=== PATIENT | male | born 1960 | race Caucasian/White ===

== ENCOUNTER 2023-02-03 07:23 | Inpatient (IN) ==
[2023-02-03] MEDS ORDERED: SODIUM CHLORIDE 0.9% 1000ML 1,000 ML IV STA (07:46)
[2023-02-03] MEDS ORDERED: ONDANSETRON INJ 2 MG/ML 2 ML VIAL IV STA (07:46)
[2023-02-03] MEDS ORDERED: KETOROLAC TROMETHAMINE 15 MG/ML VIAL IV STA (07:46)
--- NOTE | 2023-02-03 07:53 | Emergency Department Note ---
Impression & Plan Non-ST elevation [place] (NSTEMI), Right distal ureteral calculus, Elevated liver enzymes ED Provider Note CHIEF COMPLAINT: Right lower abdominal and flank pain HISTORY OF PRESENTING ILLNESS: This is a 62-year-old male who presents to the emergency department by private vehicle with complaint of right lower quadrant abdominal and right flank pain that started yesterday afternoon. The patient s tates that the pain has been intermittent, but was fairly severe throughout the night and kept him awake most of the night that he was unable to sleep. Currently rates the pain 6/10 and describes as sharp aching pain, radiates from his flank to his right lower abdomen and into his groin. He has not tried any [id number] medications for his symptoms. He does note an episode of vomiting last night and has had persistent nausea. He also had 1 episode of loose stools yesterday, but denies diarrhea or constipation. He denies bloody or black stools or blood in the emesis. He does note some increased urinary symptoms of hesitancy and frequency, he notes a history of enlarged prostate and has not been taking his Flomax for the past few weeks. He denies any history of abdominal surgeries or problems. He does report a history of fatty liver. He denies any history of kidney stones. He does note that he recently had a heart attack about 3 weeks ago, noting he was admitted for about 24 hours and he did not have any interventions done. He was started on a blood pressure medication and aspirin, but is not on any other blood thinners. He denies any chest pain, chest tightness, shortness of breath, palpitations, dizziness or syncope. REVIEW OF SYSTEMS: A complete 10 point review of systems was reviewed with the patient with pertinent positives and negatives as per history of present illness. All else were negative. PAST MEDICAL HISTORY: CAD, hypertension, enlarged prostate SOCIAL HISTORY: Home, he denies tobacco use ALLERGIES: No known allergies PHYSICAL EXAM: CONSTITUTIONAL: Pleasant and cooperative. Nontoxic-appearing and in no acute distress. Well appearing and well nourished. HEENT: Normocephalic, atraumatic. NECK: Supple, full active range of motion without discomfort. RESPIRATORY: Clear to auscultation bilaterally with no wheezing, crackles, rhonchi or stridor. Equal expansion bilaterally. CARDIOVASCULAR: Regular rate and rhythm with no murmurs, rubs or gallops. Normal peripheral perfusion. No edema. GASTROINTESTINAL: Tender to palpation in the right mid and right lower quadrant, no rebound tenderness or guarding. No RUQ tenderness. Abdomen is otherwise nontender, soft and nondistended. No palpable masses or HSM. Bowel sounds present in all quadrants. No CVA tenderness bilaterally. MUSCULOSKELETAL: Full range of motion of all joints without discomfort. INTEGUMENTARY: No rash or other significant dermatologic conditions noted. NEUROLOGIC: Alert and oriented X 4 with normal affect. Normal speech. Normal gait observed. ED COURSE AND MEDICAL DECISION MAKING: CC: Patient presenting with complaint of right lower abdominal and flank pain DIFFERENTIAL DIAGNOSIS: Includes, but not limited to ureteral stone, UTI, pyelonephritis, appendicitis, diverticulitis, cholecystitis, cholelithiasis, pancreatitis, gastroenteritis, viral process, acute coronary syndrome, pulmonary embolism, among others. INTERPRETATION OF LABS: No leukocytosis, no anemia, normal platelets, no significant electrolyte abnormalities, normal renal function, mildly elevated T. bili and ALT with normal AST and normal lipase. Coagulation factors within normal limits. Troponin significantly elevated. UA shows large blood with no signs of an infection. EK: Indication was abdominal pain and nausea/vomiting. Shows sinus rhythm with a rate of 81 bpm intervals, no ST elevation or depression, occasional PACs by my interpretation. No previous EKGs available for comparison. 0933: Indication was chest pain. Shows normal sinus rhythm with a rate of 81 bpm, sinus arrhythmia, normal intervals, no ST elevation or depression, no ectopy, PACs no longer present when compared to previous EKG from today by my interpretation. MEDICATION RECONCILIATION: I attest that I have personally reviewed the patient's current medication list. INITIAL VITAL SIGNS REVIEW: I reviewed the patient's initial vital signs and interpret them as follows: T: Afebrile; BP: Normotensive; HR: Within normal limits; RR: Within normal limit; Pulse Ox: Within normal limits on room air. MDM SUMMARY: Patient was evaluated at bedside, history and physical exam performed. Patient is alert and oriented, in no acute distress, resting calmly in the stretcher. He is afebrile and nontoxic-appearing. Tender to palpation of the right mid and lower abdomen, no acute abdomen. Cardiac monitoring: An order was placed for continuous cardiac monitoring. The monitor shows a rate of 75 bpm with normal sinus rhythm. Orders were placed for labs, UA, IV fluid bolus for hydration, IV Toradol for pain, IV Zofran for nausea, EKG, and CT abdomen/pelvis with IV contrast to evaluate for abdominal pain. EKG reviewed at bedside, no acute ischemic changes appreciated. Outside records from the patient's recent admission were requested. Patient discussed with Dr. Rg, who agrees with my assessment, plan, and disposition. Labs and imaging reviewed, labs are notable for an elevated troponin, as well as elevated liver enzymes. The patient was reassessed and I discussed his results with him. The patient does now admit that he is having some pressure in the left side of his chest that started after he had his CT imaging today. He also admits that he has been having some chest pressure off-and-on for the past few weeks since his heart attack, especially with exertion. He denies any shortness of breath, dizziness or palpitations and is well-appearing. Orders placed for repeat EKG given the new complaint of chest pressure as well as a repeat troponin. Chest x-ray also ordered. EKG reviewed and I did not note any new changes from previous EKG. Additional order placed for CTA of the chest per Dr. Rg's recommendation to evaluate for possible PE, this was reviewed and was negative. Repeat troponin is noted to be increasing, concerning for an acute cardiac process. On reassessment, the patient does state his chest discomfort has resolved. I was unable to obtain outside records, but from speaking with the patient it seems that he did not undergo any heart catheterization during his recent admission. I do believe cardiac cath should be considered, given his evolving cardiac process. I discussed all results with the patient at length and did recommend strongly that he be admitted to the hospital for further evaluation for his elevated troponin and chest discomfort, he did agree to this. [facility] to evaluate the patient for [facility]. Patient reassessed multiple times throughout ED stay, he has remained hemodynamically stable and denies any further chest discomfort at this time. The patient was updated on the plan for admission and he verbalized understanding and agreement. The patient was stable at the time of admission. The chart was completed utilizing Reissued voice recognition software. Grammatical errors, random word insertions, pronoun errors, and incomplete sentences are an occasional consequence of this system due to software limitations, ambient noise, and hardware issues. Any formal questions or concerns about the content, text, or information contained within the body of this dictation should be directly addressed to the nurse practitioner for clarification. Past Med/Surg History Social History Smoking Status: Never smoker Preferred Language: Icelandic Feels Safe at Home: Yes Allergies Allergies Allergy/AdvReac Type Severity Reaction Status Date / Time No Known Allergies Allergy Unverified 02/03/23 07:45 Results & Data (ED) Vital Signs Vital Signs - 24 hr 02/03/23 07:28 02/03/23 07:39 02/03/23 08:01 Temperature 36.3 C L Temperature Source Temporal Artery Scan Pulse Rate 85 Pulse Rate [Apical] 88 Pulse Rate from SpO2 Sensor Pulse Rhythm [Apical] Regular Pulse Strength [Apical] Normal Respiratory Rate 20 18 Respiratory Effort / Characteristics Non-Labored Respiratory Depth Normal Normal Respiratory Pattern Blood Pressure 152/67 H Blood Pressure [Right Arm] 130/88 Blood Pressure Mean 95 Blood Pressure Mean [Right Arm] 102 Blood Pressure Position Sitting Pulse Oximetry 98 98 96 Oxygen Delivery Method Room Air Room Air Room Air Sepsis Recent Fever Within 48 Hours No Sepsis New/Unexplained Change in Mental Status No Sepsis Action Taken by Nursing No Action Required 02/03/23 07:51 02/03/23 07:40 02/03/23 07:50 Temperature Temperature Source Pulse Rate 89 88 87 Pulse Rate [Apical] Pulse Rate from SpO2 Sensor 88 85 Pulse Rhythm [Apical] Pulse Strength [Apical] Respiratory Rate 19 17 Respiratory Effort / Characteristics Respiratory Depth Respiratory Pattern Blood Pressure Blood Pressure [Right Arm] Blood Pressure Mean Blood Pressure Mean [Right Arm] Blood Pressure Position Pulse Oximetry 97 95 Oxygen Delivery Method Sepsis Recent Fever Within 48 Hours Sepsis New/Unexplained Change in Mental Status Sepsis Action Taken by Nursing 02/03/23 08:00 02/03/23 08:10 02/03/23 08:20 Temperature Temperature Source Pulse Rate 68 75 75 Pulse Rate [Apical] Pulse Rate from SpO2 Sensor 70 75 81 Pulse Rhythm [Apical] Pulse Strength [Apical] Respiratory Rate 16 23 16 Respiratory Effort / Characteristics Respiratory Depth Respiratory Pattern Blood Pressure Blood Pressure [Right Arm] Blood Pressure Mean Blood Pressure Mean [Right Arm] Blood Pressure Position Pulse Oximetry 97 96 95 Oxygen Delivery Method Sepsis Recent Fever Within 48 Hours Sepsis New/Unexplained Change in Mental Status Sepsis Action Taken by Nursing 02/03/23 08:30 02/03/23 08:56 02/03/23 08:56 Temperature Temperature Source Pulse Rate 75 72 Pulse Rate [Apical] Pulse Rate from SpO2 Sensor 76 Pulse Rhythm [Apical] Pulse Strength [Apical] Respiratory Rate 13 25 H Respiratory Effort / Characteristics Respiratory Depth Respiratory Pattern Blood Pressure 147/73 H Blood Pressure [Right Arm] Blood Pressure Mean 97 Blood Pressure Mean [Right Arm] Blood Pressure Position Pulse Oximetry 97 98 Oxygen Delivery Method Sepsis Recent Fever Within 48 Hours Sepsis New/Unexplained Change in Mental Status Sepsis Action Taken by Nursing 02/03/23 09:00 02/03/23 09:10 02/03/23 09:20 Temperature Temperature Source Pulse Rate 69 82 83 Pulse Rate [Apical] Pulse Rate from SpO2 Sensor 70 81 86 Pulse Rhythm [Apical] Pulse Strength [Apical] Respiratory Rate 14 15 21 Respiratory Effort / Characteristics Respiratory Depth Respiratory Pattern Blood Pressure Blood Pressure [Right Arm] Blood Pressure Mean Blood Pressure Mean [Right Arm] Blood Pressure Position Pulse Oximetry 97 99 99 Oxygen Delivery Method Sepsis Recent Fever Within 48 Hours Sepsis New/Unexplained Change in Mental Status Sepsis Action Taken by Nursing 02/03/23 09:30 02/03/23 09:44 02/03/23 09:49 Temperature Temperature Source Pulse Rate 84 Pulse Rate [Apical] 72 Pulse Rate from SpO2 Sensor 88 72 Pulse Rhythm [Apical] Pulse Strength [Apical] Respiratory Rate 13 18 Respiratory Effort / Characteristics Non-Labored Respiratory Depth Normal Respiratory Pattern Regular Blood Pressure Blood Pressure [Right Arm] 129/73 Blood Pressure Mean Blood Pressure Mean [Right Arm] 91 Blood Pressure Position Pulse Oximetry 98 99 99 Oxygen Delivery Method Room Air Sepsis Recent Fever Within 48 Hours Sepsis New/Unexplained Change in Mental Status Sepsis Action Taken by Nursing 02/03/23 11:05 02/03/23 11:56 Temperature Temperature Source Pulse Rate 69 Pulse Rate [Apical] 58 L Pulse Rate from SpO2 Sensor Pulse Rhythm [Apical] Pulse Strength [Apical] Respiratory Rate 18 Respiratory Effort / Characteristics Non-Labored Respiratory Depth Normal Respiratory Pattern Regular Blood Pressure Blood Pressure [Right Arm] 119/68 Blood Pressure Mean Blood Pressure Mean [Right Arm] 85 Blood Pressure Position Pulse Oximetry 98 Oxygen Delivery Method Room Air Sepsis Recent Fever Within 48 Hours Sepsis New/Unexplained Change in Mental Status Sepsis Action Taken by Nursing Laboratory Data 02/03/23 07:47 02/03/23 07:47 Lab Results 02/03/23 02/03/23 02/03/23 Range/Units 07:47 07:47 07:47 WBC 8.68 (4.8-10.8) K/ul RBC 4.91 (4.70-6.10) M/uL Hgb 15.1 (14.0-18.0) g/dl Hct 42.8 (42.0-52.0) % MCV 87.2 (80.0-100.0) fL MCH 30.8 (25.0-34.0) pg MCHC 35.3 (32.0-36.0) g/dL RDW Std Deviation 38.2 (36.4-46.3) fL RDW Coeff of [place] 11.9 (11.5-14.5) % Plt Count 237 (130-400) K/uL MPV 10.7 (9.4-12.4) fL Immature Gran % (Auto) 0.3 % Neut % (Auto) 72.0 % Lymph % (Auto) 20.6 % [place] % (Auto) 6.7 % Eos % (Auto) 0.1 % Baso % (Auto) 0.3 % Neut # (Auto) 6.24 (1.40-6.50) K/uL Lymph # (Auto) 1.79 (1.2-3.4) K/uL [place] # (Auto) 0.58 (0.11-0.59) K/uL Eos # (Auto) 0.01 (0-0.50) K/uL Baso # (Auto) 0.03 (0-0.2) K/uL Immature Gran # (Auto) 0.03 (0.01-0.20) K/uL PT 11.5 (9.0-12.0) Seconds INR 1.1 (0.9-1.1) Sodium 140 (136-145) mmol/L Potassium 3.8 (3.5-5.1) mmol/L Chloride 106 (98-107) mmol/L Carbon Dioxide 26 (21-32) mmol/L Anion Gap 8 (3-11) BUN 17 (6-23) mg/dl Creatinine 0.84 (0.6-1.4) mg/dl Est Cr Clr Drug Dosing 92.9 ml/min Est GFR ( Amer) 108.0 ml/min Est GFR (Non-Af Amer) 93.2 ml/min BUN/Creatinine Ratio 20.2 H (10-20) Glucose 161 H (70-99(Fasting)) mg/dl Calcium 9.6 (8.6-10.3) mg/dl Total Bilirubin 1.6 H (0.2-1.0) mg/dl AST 38 (13-39) U/L ALT 91 H (7-52) U/L Alkaline Phosphatase 107 H (34-104) U/L Troponin I High Sens 353.1 H* (0-20) pg/ml Total Protein 7.1 (6.0-8.3) gm/dl Albumin 4.5 (3.4-5.0) gm/dl Globulin 2.6 (2.5-4.0) gm/dl Albumin/Globulin Ratio 1.7 (0.9-2) Lipase 12 (11-82) U/L Urine Color Urine Appearance (Clear) Urine pH (4.5-7.5) Ur Specific [place] (1.000-1.030) Urine Protein (Negative) Urine Glucose (UA) (Negative) Urine Ketones (Negative) Urine Blood (Negative) Urine Nitrite (Negative) Urine Bilirubin (Negative) Urine Urobilinogen (Negative) Ur Leukocyte Esterase (Negative) Urine WBC (Auto) (0-5) /hpf Urine RBC (Auto) (0-4) /hpf U Hyaline Cast (Auto) (0-5) /lpf U Epithel Cells (Auto) (0-5) /lpf Urine Bacteria (Auto) (Negative) SARS-CoV-2, RNA, NAAT (NEGATIVE) 02/03/23 02/03/23 02/03/23 Range/Units 08:57 12:37 13:16 WBC (4.8-10.8) K/ul RBC (4.70-6.10) M/uL Hgb (14.0-18.0) g/dl Hct (42.0-52.0) % MCV (80.0-100.0) fL MCH (25.0-34.0) pg MCHC (32.0-36.0) g/dL RDW Std Deviation (36.4-46.3) fL RDW Coeff of [place] (11.5-14.5) % Plt Count (130-400) K/uL MPV (9.4-12.4) fL Immature Gran % (Auto) % Neut % (Auto) % Lymph % (Auto) % [place] % (Auto) % Eos % (Auto) % Baso % (Auto) % Neut # (Auto) (1.40-6.50) K/uL Lymph # (Auto) (1.2-3.4) K/uL [place] # (Auto) (0.11-0.59) K/uL Eos # (Auto) (0-0.50) K/uL Baso # (Auto) (0-0.2) K/uL Immature Gran # (Auto) (0.01-0.20) K/uL PT (9.0-12.0) Seconds INR (0.9-1.1) Sodium (136-145) mmol/L Potassium (3.5-5.1) mmol/L Chloride (98-107) mmol/L Carbon Dioxide (21-32) mmol/L Anion Gap (3-11) BUN (6-23) mg/dl Creatinine (0.6-1.4) mg/dl Est Cr Clr Drug Dosing ml/min Est GFR ( Amer) ml/min Est GFR (Non-Af Amer) ml/min BUN/Creatinine Ratio (10-20) Glucose (70-99(Fasting)) mg/dl Calcium (8.6-10.3) mg/dl Total Bilirubin (0.2-1.0) mg/dl AST (13-39) U/L ALT (7-52) U/L Alkaline Phosphatase (34-104) U/L Troponin I High Sens 462.1 H* D (0-20) pg/ml Total Protein (6.0-8.3) gm/dl Albumin (3.4-5.0) gm/dl Globulin (2.5-4.0) gm/dl Albumin/Globulin Ratio (0.9-2) Lipase (11-82) U/L Urine Color Yellow Urine Appearance Cloudy A (Clear) Urine pH 5.5 (4.5-7.5) Ur Specific [place] 1.022 (1.000-1.030) Urine Protein Negative (Negative) Urine Glucose (UA) Negative (Negative) Urine Ketones 1+ H (Negative) Urine Blood 3+ H (Negative) Urine Nitrite Negative (Negative) Urine Bilirubin Negative (Negative) Urine Urobilinogen Negative (Negative) Ur Leukocyte Esterase Trace H (Negative) Urine WBC (Auto) 1-5 (0-5) /hpf Urine RBC (Auto) >30 H (0-4) /hpf U Hyaline Cast (Auto) 1-5 (0-5) /lpf U Epithel Cells (Auto) 0-5 (0-5) /lpf Urine Bacteria (Auto) Negative (Negative) SARS-CoV-2, RNA, NAAT NEGATIVE (NEGATIVE) Administered Medications Discontinued Medications Sodium Chloride (Nss 1000ml) 1,000 mls @ 999 mls/hr IV .Q1H1M STA Stop: 02/03/23 08:46 Last Infusion: 02/03/23 08:54 Dose: 0 mls/hr Documented By: Admin: 02/03/23 07:50 Dose: 999 mls/hr Documented By: JACINTA Ioversol (Optiray 320 500ml) 94 ml IV ONCE ONE Stop: 02/03/23 08:45 Last Admin: 02/03/23 08:44 Dose: 94 ml Documented By: DIANA(3) Ioversol (Optiray 320 500ml) 120 ml IV ONCE ONE Stop: 02/03/23 10:30 Last Admin: 02/03/23 10:30 Dose: 120 ml Documented By: DIANA(4) Ketorolac Tromethamine (Ketorolac Tromethamine 15 Mg/Ml Vial) 10 mg IV NOW STA Stop: 02/03/23 07:47 Last Admin: 02/03/23 07:56 Dose: 10 mg Documented By: JACINTA Ondansetron HCl (Ondansetron Inj 2 Mg/Ml 2 Ml Vial) 4 mg IV NOW STA Stop: 02/03/23 07:47 Last Admin: 02/03/23 07:56 Dose: 4 mg Documented By: JACINTA Imaging Data Radiologist's Impression: Abdomen/Pelvis CT 02/03/23 07:46 CT SCAN OF THE ABDOMEN AND PELVIS WITH IV CONTRAST CLINICAL HISTORY: Right lower quadrant/flank pain. COMPARISON STUDY: No priors. TECHNIQUE: Following the IV administration of 94 cc of Optiray 320, CT scan of the abdomen and pelvis is performed from the lung bases to the proximal femora. Images are reviewed in the axial, sagittal, and coronal planes. IV contrast was administered without complication. A dose lowering technique was utilized adhering to the principles of ALARA. CT DOSE: 612.01 mGy.cm FINDINGS: Lung bases: The heart is normal in size and without pericardial effusion. The lung bases are clear noting dependent atelectasis. A small hiatal hernia is noted. Postsurgical change is suggested at the hiatus. Liver: The contrast-enhanced liver is enlarged, measuring 19.1 cm in length. The liver demonstrates diffusely diminished attenuation indicating steatosis. Fatty sparing is seen adjacent to the gallbladder fossa. There is no intrahepatic biliary ductal dilatation. The hepatic veins and portal veins are patent. Gallbladder: Unremarkable. Spleen: Normal in size and attenuation. Pancreas: Unremarkable. Adrenal glands: Unremarkable. Kidneys: The contrast enhanced kidneys are normal in size. There is a 4 mm calculus protruding from the right vesicoureteral junction are located within the bladder lumen. This is seen on image #392. There is mild right hydroureteronephrosis. No additional calculi are identified in either kidney on this contrast-enhanced examination. There is no left ureteral stone or left- sided hydronephrosis. There is slightly diminished enhancement of the left kidney as compared to the right. A 14 mm cyst is noted on the left. Abdominal vasculature: The abdominal aorta is normal in course and caliber noting mild to moderate atherosclerotic calcification. Bowel: There is moderate diverticulosis of left colon without CT evidence of acute diverticulitis. No bowel obstruction is seen. The appendix is well- visualized and normal. Peritoneum: There is no intraperitoneal free air or abdominal ascites. There is a small fat-containing umbilical hernia. Lymphadenopathy: None. Pelvic viscera: The prostate gland is enlarged and heterogeneous. The bladder is distended, the wall is thickened/trabeculated indicating chronic outlet obstruction. Tiny bladder diverticula are noted. There are small bilateral fat- containing inguinal hernias. Skeletal structures: The skeletal structures appear osteopenic. There is mild lumbosacral spondylosis. No lytic or blastic lesions are seen. IMPRESSION: 1. There is a 4 mm calculus either protruding from the right vesicoureteral junction or already passed into the bladder lumen. There is mild associated right hydroureteronephrosis. 2. No additional calculi are identified in either kidney on this contrast- enhanced examination. 3. Hepatomegaly and hepatic steatosis. 4. Diverticulosis of the left colon without CT evidence of acute diverticulitis. 5. Prostatomegaly with evidence of chronic bladder outlet obstruction. 6. Additional findings as above. ACT 112: Negative or not required by law. Electronically signed by: Rich Valenzuela M.D. 02/03/2023 9:40 AM Chest X-Ray 02/03/23 08:40 SINGLE VIEW CHEST CLINICAL HISTORY: Cardiac assessment. Right-sided abdominal pain. FINDINGS: An AP, portable, upright chest radiograph is obtained. No prior studies are available for comparison at the time of dictation. The cardiomediastinal silhouette is top normal for projection. The lungs and pleural spaces are clear. No pneumothorax is seen. The bony thorax is grossly intact. IMPRESSION: No active disease in the chest. ACT 112: Negative or not required by law. Electronically signed by: Rich Valenzuela M.D. 02/03/2023 9:28 AM Chest CTA 02/03/23 09:27 CT ANGIOGRAM OF THE CHEST CLINICAL HISTORY: Right-sided abdominal pain. COMPARISON STUDY: Chest x-ray dated 02/03/2023. TECHNIQUE: Following the IV administration of 120 cc of Optiray 320, CT angiogram of the chest was performed from the upper abdomen to the thoracic inlet utilizing the pulmonary embolus protocol. Images are reviewed in the axial, sagittal, and coronal planes. 3-D MIPS images are created and assessed. IV contrast was administered without complication. A dose lowering technique was utilized adhering to the principles of ALARA. CT DOSE: 480.47 mGy.cm FINDINGS: Thyroid: Imaged portions of the thyroid gland are normal in size and attenuation. Thoracic aorta: There is mild atherosclerotic calcification of the thoracic aorta, which is normal in caliber and demonstrates standard 3-vessel arch anatomy. No dissection is seen. Pulmonary vasculature: The pulmonary trunk is normal in caliber. There are no filling defects identified in main, lobar, or segmental pulmonary branches to suggest pulmonary embolus. Heart: The heart is top normal in size and without pericardial effusion. There are scattered coronary artery calcifications. Lungs and pleural spaces: No airspace consolidation or pleural effusion is identified. There is a 4 mm low suspicion focus of pleural-based nodularity in the right middle lobe along the minor fissure seen on image #166. The trachea and central airways are clear. Mediastinum: There is no mediastinal lymphadenopathy. Naomi: Clear. Axillae: There is no axillary lymphadenopathy. Upper abdomen: Excreted IV contrast is seen within the upper pole renal collecting systems. The liver is steatotic. Skeletal structures: No lytic or blastic bony lesions are seen. IMPRESSION: 1. There is no evidence of pulmonary embolus in the main, lobar, or segmental pulmonary arteries. 2. The lungs are clear. ACT 112: Negative or not required by law. Electronically signed by: Rich Valenzuela M.D. 02/03/2023 11:59 AM Discharge Plan Visit Data Chief Complaint: Abdominal Pain Stated Complaint: LRQ ABD PAIN,HX OF HEART ATTACK ON [facility] ED Provider: Sly Rg ED Midlevel Provider: Corrie Schneider Discharge Problem: Non-ST elevation [place] (NSTEMI), Right distal ureteral calculus, Elevated liver enzymes Forms Stand Alone Forms: [facility] Referrals Referrals: PCP,NO [Primary Care Provider] -
[2023-02-03 08:18] LABS: Basophils # (auto) 0.03 K/uL (0-0.2); Basophils % (auto) 0.3 %; Eosinophils # (auto) 0.01 K/uL (0-0.50); Eosinophils % (auto) 0.1 %; Hematocrit (blood only) 42.8 % (42.0-52.0); Hemoglobin 15.1 g/dl (14.0-18.0); Immature Granulocytes # (auto) 0.03 K/uL (0.01-0.20); Immature Granulocytes % (auto) 0.3 %; Lymphocytes # (auto) 1.79 K/uL (1.2-3.4); Lymphocytes % (auto) 20.6 %; Mean Corpuscular Hemoglobin 30.8 pg (25.0-34.0); Mean Corpuscular Hgb Conc 35.3 g/dL (32.0-36.0); Mean Corpuscular Volume 87.2 fL (80.0-100.0); Mean Platelet Volume 10.7 fL (9.4-12.4); Monocytes # (auto) 0.58 K/uL (0.11-0.59); Monocytes % (auto) 6.7 %; Neutrophils # (auto) 6.24 K/uL (1.40-6.50); Platelet Count 237 K/uL (130-400); RDW Coefficient of Variation 11.9 % (11.5-14.5); RDW Standard Deviation 38.2 fL (36.4-46.3); Red Blood Count 4.91 M/uL (4.70-6.10); White Blood Count 8.68 K/ul (4.8-10.8)
[2023-02-03 08:30] LABS: Albumin Globulin Ratio 1.7 (0.9-2); Albumin Level 4.5 gm/dl (3.4-5.0); BUN Creatinine Ratio 20.2 (10-20); Bilirubin,Total 1.6 mg/dl (0.2-1.0); Calcium 9.6 mg/dl (8.6-10.3); Creatinine Clr Calc Pharmacy 92.9 ml/min; Est GFR (Non-African American) 93.2 ml/min; Globulin 2.6 gm/dl (2.5-4.0); Potassium 3.8 mmol/L (3.5-5.1); Total Protein 7.1 gm/dl (6.0-8.3)
[2023-02-03 08:41] LABS: INR 1.1 (0.9-1.1); Prothrombin Time 11.5 Seconds (9.0-12.0); Troponin I High Sensitivity 353.1 pg/ml (0-20)
[2023-02-03] MEDS ORDERED: OPTIRAY 320 500ml IV ONE ×2 (08:44→10:29)
[2023-02-03 09:05] LABS: Appearance Urine Cloudy (Clear); Bacteria Urine Automated Negative (Negative); Bilirubin Urine Negative (Negative); Blood Urine 3+ (Negative); Color Urine Yellow; Epithelial Cell Urine Auto 0-5 /lpf (0-5); Glucose Urine UA Negative (Negative); Ketones Urine 1+ (Negative); Leukocyte Esterase Urine Trace (Negative); Nitrite Urine Negative (Negative); Protein Urine Negative (Negative); RBC Urine Automated >30 /hpf (0-4); Specific Gravity Urine 1.022 (1.000-1.030); Urobilinogen Urine Negative (Negative); pH Urine 5.5 (4.5-7.5)
--- NOTE | 2023-02-03 09:30 | XRay Report ---
SINGLE VIEW CHEST CLINICAL HISTORY: Cardiac assessment. Right-sided abdominal pain. FINDINGS: An AP, portable, upright chest radiograph is obtained. No prior studies are available for c omparison at the time of dictation. The cardiomediastinal silhouette is top normal for projection. Th e lungs and pleural spaces are clear. No pneumothorax is seen. The bony thorax is grossly intact. IMPRESSION: No active disease in the chest. ACT 112: Negative or not required by law. Electronically signed by: Rich Valenzuela M.D. 02/03/2023 9:28 AM
--- NOTE | 2023-02-03 09:42 | CT Scan Report ---
CT SCAN OF THE ABDOMEN AND PELVIS WITH IV CONTRAST CLINICAL HISTORY: Right lower quadrant/flank pain. COMPARISON STUDY: No priors. TECHNIQUE: Following the IV administration of 94 cc of Optiray 320, CT scan of the abdomen and pelvi s is performed from the lung bases to the proximal femora. Images are reviewed in the axial, sagittal , and coronal planes. IV contrast was administered without complication. A dose lowering technique wa s utilized adhering to the principles of ALARA. CT DOSE: 612.01 mGy.cm FINDINGS: Lung bases: The heart is normal in size and without pericardial effusion. The lung bases are clear no ting dependent atelectasis. A small hiatal hernia is noted. Postsurgical change is suggested at the h iatus. Liver: The contrast-enhanced liver is enlarged, measuring 19.1 cm in length. The liver demonstrates d iffusely diminished attenuation indicating steatosis. Fatty sparing is seen adjacent to the gallbladd er fossa. There is no intrahepatic biliary ductal dilatation. The hepatic veins and portal veins are patent. Gallbladder: Unremarkable. Spleen: Normal in size and attenuation. Pancreas: Unremarkable. Adrenal glands: Unremarkable. Kidneys: The contrast enhanced kidneys are normal in size. There is a 4 mm calculus protruding from t he right vesicoureteral junction are located within the bladder lumen. This is seen on image #392. Th ere is mild right hydroureteronephrosis. No additional calculi are identified in either kidney on thi s contrast-enhanced examination. There is no left ureteral stone or left-sided hydronephrosis. There is slightly diminished enhancement of the left kidney as compared to the right. A 14 mm cyst is noted on the left. Abdominal vasculature: The abdominal aorta is normal in course and caliber noting mild to moderate at herosclerotic calcification. Bowel: There is moderate diverticulosis of left colon without CT evidence of acute diverticulitis. No bowel obstruction is seen. The appendix is well-visualized and normal. Peritoneum: There is no intraperitoneal free air or abdominal ascites. There is a small fat-containin g umbilical hernia. Lymphadenopathy: None. Pelvic viscera: The prostate gland is enlarged and heterogeneous. The bladder is distended, the wall is thickened/trabeculated indicating chronic outlet obstruction. Tiny bladder diverticula are noted. There are small bilateral fat-containing inguinal hernias. Skeletal structures: The skeletal structures appear osteopenic. There is mild lumbosacral spondylosis . No lytic or blastic lesions are seen. IMPRESSION: 1. There is a 4 mm calculus either protruding from the right vesicoureteral junction or already passe d into the bladder lumen. There is mild associated right hydroureteronephrosis. 2. No additional calculi are identified in either kidney on this contrast-enhanced examination. 3. Hepatomegaly and hepatic steatosis. 4. Diverticulosis of the left colon without CT evidence of acute diverticulitis. 5. Prostatomegaly with evidence of chronic bladder outlet obstruction. 6. Additional findings as above. ACT 112: Negative or not required by law. Electronically signed by: Rich Valenzuela M.D. 02/03/2023 9:40 AM
--- NOTE | 2023-02-03 12:00 | CT Scan Report ---
CT ANGIOGRAM OF THE CHEST CLINICAL HISTORY: Right-sided abdominal pain. COMPARISON STUDY: Chest x-ray dated 02/03/2023. TECHNIQUE: Following the IV administration of 120 cc of Optiray 320, CT angiogram of the chest was pe rformed from the upper abdomen to the thoracic inlet utilizing the pulmonary embolus protocol. Images are reviewed in the axial, sagittal, and coronal planes. 3-D MIPS images are created and assessed. I V contrast was administered without complication. A dose lowering technique was utilized adhering to the principles of ALARA. CT DOSE: 480.47 mGy.cm FINDINGS: Thyroid: Imaged portions of the thyroid gland are normal in size and attenuation. Thoracic aorta: There is mild atherosclerotic calcification of the thoracic aorta, which is normal in caliber and demonstrates standard 3-vessel arch anatomy. No dissection is seen. Pulmonary vasculature: The pulmonary trunk is normal in caliber. There are no filling defects identif ied in main, lobar, or segmental pulmonary branches to suggest pulmonary embolus. Heart: The heart is top normal in size and without pericardial effusion. There are scattered coronary artery calcifications. Lungs and pleural spaces: No airspace consolidation or pleural effusion is identified. There is a 4 m m low suspicion focus of pleural-based nodularity in the right middle lobe along the minor fissure se en on image #166. The trachea and central airways are clear. Mediastinum: There is no mediastinal lymphadenopathy. Naomi: Clear. Axillae: There is no axillary lymphadenopathy. Upper abdomen: Excreted IV contrast is seen within the upper pole renal collecting systems. The liver is steatotic. Skeletal structures: No lytic or blastic bony lesions are seen. IMPRESSION: 1. There is no evidence of pulmonary embolus in the main, lobar, or segmental pulmonary arteries. 2. The lungs are clear. ACT 112: Negative or not required by law. Electronically signed by: Rich Valenzuela M.D. 02/03/2023 11:59 AM
--- NOTE | 2023-02-03 14:34 | History & Physical Report ---
Date of Service February 03, 2023 Assessment & Plan (1) Right distal ureteral calculus: Plan: Admit to telemetry Patient presenting from home with reports of right lower quadrant abdominal pain with associated nausea and vomiting In the ED, CT ABD/pelvis shows a 4 mm calculus either protruding from the right vesicoureteral junction or already passed into the bladder lumen. There is mild associated right hydroureteronephrosis. UA does not suggest infection, patient is afebrile without leukocytosis Patient previously on Flomax however has been only using on a as needed basis. Will resume Flomax 0.4 mg daily. Strain all urine Urology consult (2) Troponin I above reference range: Plan: HS trop 353 --> 462 Admitted to [facility] 01/14/2023 for chest pain, elevated troponin, hypertensive urgency. Per patient report, he underwent stress test that was negative. Records requested. Discharged on lisinopril and ASA 81 mg daily Patient reports ongoing symptoms of exertional chest pain, however this is not what brought him to the ED today Currently chest pain-free Given kidney stone as above, would hold on IV heparin for now Continue to trend troponin, resting echo Cardiology consult, case discussed with Dr. Arriola (3) HTN (hypertension): Plan: BP controlled, continue lisinopril (4) BPH (benign prostatic hyperplasia): Plan: Continue Flomax (5) Fatty liver: Plan: Hepatomegaly and hepatic steatosis noted on CT ABD/pelvis Patient reports a history of elevated LFTs. LFTs today total bili 1.6, AST 38, ALT 91, alk phos 107. Records requested from recent admission to [facility] for comparison. Follow LFTs, likely will need follow-up with GI as an outpatient DVT PROPHYLAXIS SCDs Patient seen in collaboration with Dr. Akins. I spent a total of 75 minutes coordinating, documenting, and providing care for this patient excluding time spent in the performance of separately billed services. This included personally reviewing all current laboratories and imaging studies, medication reconciliation, outpatient chart review, and discussion with specialists. History of Present Illness Chief Complaint: RLQ pain Primary Care Provider: NO PCP 62 year old male with PMH HTN, BPH, fatty liver, and other problems listed below who presents to the ED for evaluation of RLQ abdominal pain. History obtained from patient and records he presented from recent discharge from OSH. Patient reports he was admitted to [facility] on 01/14/23 for chest pain and high blood pressure. Reports he was diagnosed with a NSTEMI and had a negative stress test, did not undergo cardiac cath. Patient reports that since returning home, he has been trying to walk 1 mile per day. He states that at the end of his walk, he will develop a left sided chest pain that radiates into his left shoulder and arm. Pain is resolved with rest. Patient had similar symptoms this morning after going downstairs to put a load of laundry in the washer. This however was not brought the patient to the ED today. Patient reports that last evening he developed a right lower quadrant abdominal pain with abdominal fullness. Patient reports he also had associated nausea and vomiting. Patient reports his pain persisted this morning so he presented to the ED for further evaluation. Patient denies fevers and chills. He reports urinary hesitancy and frequency however states he has not been taking his Flomax for the past 2 weeks. Denies hematuria. In the ED, CT ABD/pelvis shows 4 mm calculus either protruding from the right vesicoureteral junction or already passed into the bladder lumen. Initial HS troponin 353 --> 462. EKG without acute ST changes. Patient is hemodynamically stable. He was given IV ketorolac, IV Zofran, IVF. Allergies Allergy/AdvReac Type Severity Reaction Status Date / Time No Known Allergies Allergy Unverified 02/03/23 07:45 Home Medications Medication Instructions Recorded Confirmed Type aspirin 81 mg tablet,delayed 81 mg PO DAILY 02/03/23 02/03/23 History release lisinopril 10 mg tablet 10 mg PO DAILY 02/03/23 02/03/23 History tamsulosin 0.4 mg capsule (Flomax) 0.4 mg PO DAILY PRN Urinary 02/03/23 02/03/23 History Retention Past Med/Surg History Medical History BPH (benign prostatic hyperplasia) Fatty liver HTN (hypertension) Surgical History No significant past surgical history Family History (Updated 02/03/23 @ 15:31 by BETTY Cobian) Father Heart disease Social History (Updated 02/03/23 @ 15:32 by BETTY Cobian) Smoking Status: Never smoker Second Hand Exposure: No; Do You Dip or Chew Tobacco: No; Tobacco Cessation Education Requested by Patient: No Hx Alcohol Use: Yes Alcohol type: beer and wine Alcohol Intake Frequency: 2-3 x/Week Hx Substance Use: No Preferred Language: Icelandic Communication Ability: Effective Beliefs That Will Affect Care: None Current Living Situation: Alone Other Information That Helps Us Care for You: No Feels Safe at Home: Yes Assistive Devices: None Review of Systems Review of Systems: ROS per HPI, all other systems reviewed and negative Physical Exam Constitutional: WD/WN, vitals as above Eyes: PERRL, conjunctivae normal, anicteric sclerae ENMT: external ear and nose normal, oropharynx normal Respiratory: normal respiratory effort, lungs clear to auscultation Cardiovascular: Rate/Rhythm: regular rate and regular rhythm Vessels: normal peripheral pulses Extremities: no edema Gastrointestinal (Abdomen): normal bowel sounds, soft, nontender, no hepatosplenomegaly Musculoskeletal: no cyanosis or clubbing, extremities motor strength 5/5 Skin: no rashes, warm and dry Neurologic: PERRL, EOMI, accommodation nl, no face palsy, no dysarthria Psychiatric: A+Ox3, euthymic affect Genitourinary: no CVA tenderness Results & Data Results & Data Vital Signs (Past 12 Hours) Vital Signs Temp Pulse Pulse Resp BP BP Pulse Ox 02/03/23 11:56 69 02/03/23 14:17 67 18 150/94 H 100 02/03/23 11:05 58 L 18 119/68 98 02/03/23 09:49 72 18 129/73 99 02/03/23 09:44 99 02/03/23 09:30 84 13 98 02/03/23 09:20 83 21 99 02/03/23 09:10 82 15 99 02/03/23 09:00 69 14 97 02/03/23 08:56 72 25 H 98 02/03/23 08:56 147/73 H 02/03/23 08:30 75 13 97 02/03/23 08:20 75 16 95 02/03/23 08:10 75 23 96 02/03/23 08:00 68 16 97 02/03/23 07:50 87 17 95 02/03/23 07:40 88 19 97 02/03/23 07:51 89 02/03/23 08:01 96 02/03/23 07:39 88 18 130/88 98 02/03/23 07:28 36.3 C L 85 20 152/67 H 98 O2 Del Method 02/03/23 11:56 02/03/23 14:17 Room Air 02/03/23 11:05 Room Air 02/03/23 09:49 Room Air 02/03/23 09:44 02/03/23 09:30 02/03/23 09:20 02/03/23 09:10 02/03/23 09:00 02/03/23 08:56 02/03/23 08:56 02/03/23 08:30 02/03/23 08:20 02/03/23 08:10 02/03/23 08:00 02/03/23 07:50 02/03/23 07:40 02/03/23 07:51 02/03/23 08:01 Room Air 02/03/23 07:39 Room Air 02/03/23 07:28 Room Air Laboratory Results Short CBC 02/03/23 Range/Units 07:47 WBC 8.68 (4.8-10.8) K/ul Hgb 15.1 (14.0-18.0) g/dl Hct 42.8 (42.0-52.0) % Plt Count 237 (130-400) K/uL BMP 02/03/23 07:47 Sodium 140 Potassium 3.8 Chloride 106 Carbon Dioxide 26 BUN 17 Creatinine 0.84 Glucose 161 H Calcium 9.6 Liver Function 02/03/23 Range/Units 07:47 Total Bilirubin 1.6 H (0.2-1.0) mg/dl AST 38 (13-39) U/L ALT 91 H (7-52) U/L Alkaline Phosphatase 107 H (34-104) U/L Albumin 4.5 (3.4-5.0) gm/dl Urine 02/03/23 Range/Units 08:57 Urine Color Yellow Urine Appearance Cloudy A (Clear) Urine pH 5.5 (4.5-7.5) Ur Specific [place] 1.022 (1.000-1.030) Urine Protein Negative (Negative) Urine Glucose (UA) Negative (Negative) Diagnostic Findings Abdomen/Pelvis CT 02/03/23 07:46 CT SCAN OF THE ABDOMEN AND PELVIS WITH IV CONTRAST CLINICAL HISTORY: Right lower quadrant/flank pain. COMPARISON STUDY: No priors. TECHNIQUE: Following the IV administration of 94 cc of Optiray 320, CT scan of the abdomen and pelvis is performed from the lung bases to the proximal femora. Images are reviewed in the axial, sagittal, and coronal planes. IV contrast was administered without complication. A dose lowering technique was utilized adhering to the principles of ALARA. CT DOSE: 612.01 mGy.cm FINDINGS: Lung bases: The heart is normal in size and without pericardial effusion. The lung bases are clear noting dependent atelectasis. A small hiatal hernia is noted. Postsurgical change is suggested at the hiatus. Liver: The contrast-enhanced liver is enlarged, measuring 19.1 cm in length. The liver demonstrates diffusely diminished attenuation indicating steatosis. Fatty sparing is seen adjacent to the gallbladder fossa. There is no intrahepatic biliary ductal dilatation. The hepatic veins and portal veins are patent. Gallbladder: Unremarkable. Spleen: Normal in size and attenuation. Pancreas: Unremarkable. Adrenal glands: Unremarkable. Kidneys: The contrast enhanced kidneys are normal in size. There is a 4 mm calculus protruding from the right vesicoureteral junction are located within the bladder lumen. This is seen on image #392. There is mild right hydroureteronephrosis. No additional calculi are identified in either kidney on this contrast-enhanced examination. There is no left ureteral stone or left- sided hydronephrosis. There is slightly diminished enhancement of the left kidney as compared to the right. A 14 mm cyst is noted on the left. Abdominal vasculature: The abdominal aorta is normal in course and caliber noting mild to moderate atherosclerotic calcification. Bowel: There is moderate diverticulosis of left colon without CT evidence of acute diverticulitis. No bowel obstruction is seen. The appendix is well-vis ualized and normal. Peritoneum: There is no intraperitoneal free air or abdominal ascites. There is a small fat-containing umbilical hernia. Lymphadenopathy: None. Pelvic viscera: The prostate gland is enlarged and heterogeneous. The bladder is distended, the wall is thickened/trabeculated indicating chronic outlet obstruction. Tiny bladder diverticula are noted. There are small bilateral fat- containing inguinal hernias. Skeletal structures: The skeletal structures appear osteopenic. There is mild lumbosacral spondylosis. No lytic or blastic lesions are seen. IMPRESSION: 1. There is a 4 mm calculus either protruding from the right vesicoureteral junction or already passed into the bladder lumen. There is mild associated right hydroureteronephrosis. 2. No additional calculi are identified in either kidney on this contrast- enhanced examination. 3. Hepatomegaly and hepatic steatosis. 4. Diverticulosis of the left colon without CT evidence of acute diverticulitis. 5. Prostatomegaly with evidence of chronic bladder outlet obstruction. 6. Additional findings as above. ACT 112: Negative or not required by law. Electronically signed by: Rich Valenzuela M.D. 02/03/2023 9:40 AM Chest X-Ray 02/03/23 08:40 SINGLE VIEW CHEST CLINICAL HISTORY: Cardiac assessment. Right-sided abdominal pain. FINDINGS: An AP, portable, upright chest radiograph is obtained. No prior studies are available for comparison at the time of dictation. The cardiomediastinal silhouette is top normal for projection. The lungs and pleural spaces are clear. No pneumothorax is seen. The bony thorax is grossly intact. IMPRESSION: No active disease in the chest. ACT 112: Negative or not required by law. Electronically signed by: Rich Valenzuela M.D. 02/03/2023 9:28 AM Chest CTA 02/03/23 09:27 CT ANGIOGRAM OF THE CHEST CLINICAL HISTORY: Right-sided abdominal pain. COMPARISON STUDY: Chest x-ray dated 02/03/2023. TECHNIQUE: Following the IV administration of 120 cc of Optiray 320, CT angiogram of the chest was performed from the upper abdomen to the thoracic inlet utilizing the pulmonary embolus protocol. Images are reviewed in the axial, sagittal, and coronal planes. 3-D MIPS images are created and assessed. IV contrast was administered without complication. A dose lowering technique was utilized adhering to the principles of ALARA. CT DOSE: 480.47 mGy.cm FINDINGS: Thyroid: Imaged portions of the thyroid gland are normal in size and attenuation. Thoracic aorta: There is mild atherosclerotic calcification of the thoracic aorta, which is normal in caliber and demonstrates standard 3-vessel arch anatomy. No dissection is seen. Pulmonary vasculature: The pulmonary trunk is normal in caliber. There are no filling defects identified in main, lobar, or segmental pulmonary branches to suggest pulmonary embolus. Heart: The heart is top normal in size and without pericardial effusion. There are scattered coronary artery calcifications. Lungs and pleural spaces: No airspace consolidation or pleural effusion is identified. There is a 4 mm low suspicion focus of pleural-based nodularity in the right middle lobe along the minor fissure seen on image #166. The trachea and central airways are clear. Mediastinum: There is no mediastinal lymphadenopathy. Naomi: Clear. Axillae: There is no axillary lymphadenopathy. Upper abdomen: Excreted IV contrast is seen within the upper pole renal collecting systems. The liver is steatotic. Skeletal structures: No lytic or blastic bony lesions are seen. IMPRESSION: 1. There is no evidence of pulmonary embolus in the main, lobar, or segmental pulmonary arteries. 2. The lungs are clear. ACT 112: Negative or not required by law. Electronically signed by: Rich Valenzuela M.D. 02/03/2023 11:59 AM Code Status & VTE Plan VTE Prophylaxis Plan VTE Prophylaxis will be ordered: Yes Supervising Physician Co-Signing Physician Notes Patient was seen and examined independently at bedside. Chart reviewed. Case discussed with Mee HERNÁNDEZ and agree with the documentation above except as noted below. In summary, this is a 62-year-old male with recent history of NSTEMI in setting of hypertensive urgency but and negative stress test presented to ED with right lower quadrant pain and was found to have 4 mm right ureteral calculi along with elevated troponin. He has history of anginal symptoms with chest pressure at the end of 1 mile walk. Did not have any more of the RLQ pain during my encounter. On exam, sitting up in bed, comfortable, on room air, AAO, chest clear, heart normal, abdomen benign, no edema, neurologically intact. No evidence of urinary tract infection. Since it is a tiny calculi and is protruding from right VUJ or already passed into bladder lumen, doubt he will need any uro surgery. Continue conservative management with IV fluids, Flomax, pain medicine, straining urine to collect stone and sent to lab if he passes. C onsult uro if stone does not pass. Regarding his anginal symptoms, agree with telemetry, serial troponin, cardiac consult- might need cardiac cath-defer to cardiology. Rest as per the note above.
--- NOTE | 2023-02-03 15:35 | Cardiology Consultation ---
Date of Consultation February 03, 2023 Assessment & Plan (1) Troponin I above reference range: (2) HTN (hypertension): (3) Fatty liver: (4) Elevated liver enzymes: (5) Right distal ureteral calculus: Plan HS troponin above reference range -Patient's high-sensitivity troponin is mildly elevated in the absence of any current symptoms suggestive of angina. EKG normal x2. -Current presentation suggests myocardial strain in the setting of him being in pain for over 24 hours from passing a kidney stone. -Recommend IV hydration given findings of 4 mm right vesicoureteral junction calculus -At present, I would avoid systemic anticoagulation with heparin as he is asym ptomatic, I would not want to induce any hematuria. If he develops angina, this can be reconsidered. Recommend aspirin 81 mg daily, continuation of his prior to hospital treatment with Flomax and lisinopril, and would add metoprolol. I think it would be reasonable to add atorvastatin , and obtain a lipid panel tomorrow am. It is noted the the liver function tests are elevated, but his CT suggests steatosis and he does describe occasional alcohol use. I think as long as we monitor the liver tests statin therapy is acceptable. -His recent hospital stay is suggestive of working diagnosis of elevated troponin and related non-STEMI in the setting setting of hypertensive urgency. -He however has had symptoms in the meantime of recurrent chest tightness with walking and although he has not presented with any anginal symptoms today, the symptoms are certainly concerning and require further evaluation. -An echocardiogram will be obtained. The admitting service is consulting urology which I think is prudent. History of Present Illness History of Present Illness Gustavo Royal Ralph Jr. is a 62-year-old male seen in cardiology consultation per the request of BETTY Cobian for evaluation of findings of elevated high- sensitivity troponin x2 measurements. The patient receives most of his health care within the [facility] healthcare system in [facility]. 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 He moved to [place] about a year ago, but has maintained his primary care in [place] as he frequently travels there for work. His recent history dates back to [facility], 01/14/23. He was visiting his family at his mother's house and had onset of a pressure sensation in his chest. He thought that maybe this was indigestion, but it persisted. He ultimately presented to the emergency department at [facility] ([facility]) in [place], [place]. His records from that stay are not available for review, and the patient does not provide a lot of detail. He does however recall that on arrival to the emergency room his blood pressure was elevated with measurement of 220/110. He had never had a blood pressure reading that high in the past. He describes being told that his troponin was elevated and he was diagnosed with a non-ST segment elevation myocardial infarction. He was kept in the hospital overnight. He describes having had a CT scan, details unknown. The day after presentation he describes having walked on a treadmill for stress test and completed 8-1/2 minutes without reproduction of his chest discomfort. He is unaware of whether or not he had any kind of imaging associated with the stress test. Ultimately he was told that things were OK. He was discharged on a new medication, lisinopril 10 mg daily and aspirin 81 mg daily. He had been counseled to continue his chronic tamsulosin medication but he states that he actually misunderstood those instructions and has not been taking it for the last 2 and half weeks. In the meantime since leaving the hospital he has been trying to walk at least a mile a day. He notes that at the end of his walk he has recurrence of the left- sided chest tightness and feels that it radiates into his left shoulder and left upper arm with exertion. Last evening he developed a new symptom of pain in his right lower abdomen that radiated into his genitals. This discomfort persisted and he therefore presented to the emergency department at [facility] today. His presenting blood pressure today was 152/67. A CT of the abdomen and pelvis was performed, and per the radiology report revealed a 4 mm calculus either protruding from the right vesicoureteral junction or already passed into the bladder lumen. There is mild associated right hydroureteronephrosis. Hepatomegaly with hepatic steatosis noted. Prostate was enlarged with evidence of chronic bladder outlet obstruction. A CT angiogram of the chest was performed revealing no evidence of pulmonary embolism. A 4 mm pleural-based nodularity was noted in the right middle lobe. No pericardial effusion was noted. Radiology report describes scattered coronary artery calcifications. A high-sensitivity troponin was measured today at 7:47 AM and was elevated at 353 PG per mL. Repeat level was drawn at 12:37 PM and was 462 PG per mL. At the time my assessment the patient was completely asymptomatic having already received a liter of IV fluid. His fluids are currently discontinued. He received 10 mg of IV Toradol and a dose of Zofran. Past Medical History: prostatic enlargement Family History: Patient's mother is alive at the age of 90 per his description she had a percutaneous valve replacement performed about a year ago. No other past heart history. The patient's father 18 years ago in his 70s. He believes he had a history of "heart disease "had a heart catheterization but he does not know any more detail than that. He recalls his father used to carry nitroglycerin. 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 Allergies Allergy/AdvReac Type Severity Reaction Status Date / Time No Known Allergies Allergy Unverified 02/03/23 07:45 Home Medications Medication Instructions Recorded Confirmed Type aspirin 81 mg tablet,delayed 81 mg PO DAILY 02/03/23 02/03/23 History release lisinopril 10 mg tablet 10 mg PO DAILY 02/03/23 02/03/23 History tamsulosin 0.4 mg capsule (Flomax) 0.4 mg PO DAILY PRN Urinary 02/03/23 02/03/23 History Retention Patient History Medical History (Updated 02/03/23 @ 15:35 by Micky Arriola DO) BPH (benign prostatic hyperplasia) Fatty liver HTN (hypertension) Surgical History (Updated 02/03/23 @ 14:32 by BETTY Cobian) No significant past surgical history Family History (Updated 02/03/23 @ 15:27 by BETTY Cobian) Father Heart disease Social History Smoking Status: Never smoker Hx Alcohol Use: Yes Alcohol type: beer and wine Alcohol Intake Frequency: 2-3 x/Week Preferred Language: Citizen Of [place] Feels Safe at Home: Yes Review of Systems Review of Systems: All systems reviewed & are unremarkable except as noted in HPI & below Physical Exam Physical Exam: Temp Pulse Resp BP Pulse Ox O2 Del Method 36.3 C L 67 18 150/94 H 100 Room Air 02/03/23 07:28 02/03/23 14:17 02/03/23 14:17 02/03/23 14:17 02/03/23 14:17 02/03/23 14:17 Constitutional: WD/WN, vitals as above Eyes: PERRL, conjunctivae normal, anicteric sclerae Respiratory: normal respiratory effort, lungs clear to auscultation Cardiovascular: RRR, no murmur, no edema Gastrointestinal (Abdomen): normal bowel sounds, soft, nontender, no hepatosplenomegaly Neurologic: PERRL, EOMI, accommodation nl, no face palsy, no dysarthria Genitourinary: clear yellow urine Results & Data Laboratory Results Cardiac Enzymes 02/03/23 02/03/23 Range/Units 07:47 12:37 AST 38 (13-39) U/L Troponin I High Sens 353.1 H* 462.1 H* D (0-20) pg/ml Coagulation 02/03/23 Range/Units 07:47 PT 11.5 (9.0-12.0) Seconds CBC 02/03/23 Range/Units 07:47 WBC 8.68 (4.8-10.8) K/ul RBC 4.91 (4.70-6.10) M/uL Hgb 15.1 (14.0-18.0) g/dl Hct 42.8 (42.0-52.0) % Plt Count 237 (130-400) K/uL Neut # (Auto) 6.24 (1.40-6.50) K/uL Lymph # (Auto) 1.79 (1.2-3.4) K/uL Cabell # (Auto) 0.58 (0.11-0.59) K/uL Eos # (Auto) 0.01 (0-0.50) K/uL Baso # (Auto) 0.03 (0-0.2) K/uL Comprehensive Metabolic Panel 02/03/23 Range/Units 07:47 Sodium 140 (136-145) mmol/L Potassium 3.8 (3.5-5.1) mmol/L Chloride 106 (98-107) mmol/L Carbon Dioxide 26 (21-32) mmol/L BUN 17 (6-23) mg/dl Creatinine 0.84 (0.6-1.4) mg/dl Glucose 161 H (70-99(Fasting)) mg/dl Calcium 9.6 (8.6-10.3) mg/dl AST 38 (13-39) U/L ALT 91 H (7-52) U/L Alkaline Phosphatase 107 H (34-104) U/L Total Protein 7.1 (6.0-8.3) gm/dl Albumin 4.5 (3.4-5.0) gm/dl Intake and Output 02/03/23 02/03/23 02/03/23 06:59 14:59 22:59 Intake Total 1000 / 1000 Balance 1000 / 1000 Intake: IV 1000 / 1000 Sodium Chloride 0.9% 1000ML 1, 1000 / 1000 000 ml @ 999 mls/hr IV .Q1H1M STA Rx#:[id number] Other: Weight 79.3 kg Patient Weight 02/04/23 06:59 Weight 79.3 kg Diagnostic Findings EKG performed 02/03/2023 at 7:59 AM and interpreted independently: Sinus rhythm at 81 bpm with occasional PACs. ST segments are normal. Repeat tracing performed today at 9:33 AM and interpreted dependently: Sinus rhythm with sinus arrhythmia at [address] segments.
[2023-02-03] MEDS ORDERED: ONDANSETRON INJ 2 MG/ML 2 ML VIAL IV PRN (15:55)
[2023-02-03] MEDS ORDERED: ACETAMINOPHEN 325 MG TAB PO PRN (15:55)
--- NOTE | 2023-02-03 19:08 | Urology Consultation ---
Date of Consultation February 03, 2023 Assessment & Plan (1) BPH (benign prostatic hyperplasia): (2) Right distal ureteral calculus: The patient has been admitted to the hospital on the hospitalist service. The patient does report some symptomatology concerning for cardiac etiology including dyspnea on exertion as well as chest discomfort with activity. He was noted to have an elevated troponin this is currently being evaluated by cardiology. Plans are noted to trend patient's cardiac enzymes as well as check a cardiac echo. From a urology perspective we recommend the following: Strain all urine and save any kidney stones obtained for analysis The patient has some signs and symptoms concerning for obstructive uropathy and this is also evident on his CAT scan. His Flomax has been reinitiated and I recommend that the patient take this on a daily basis. This will hopefully help with patient's decreased urine stream as well as help him pass kidney stone if it has not already passed. Analgesics to be provided Antiemetics to be provided Follow serial labs There is no evidence of urinary tract infection so I do not feel antibiotics are needed at this time The patient is noted to be hemodynamically stable with normal blood pressure and without tachycardia or fever. He does not have leukocytosis or evidence of acute kidney injury therefore not feel an emergent urologic procedure is required. Will be beneficial to complete patient's ongoing cardiac evaluation prior to consideration of any intervention for his kidney stone if this should be required. History of Present Illness Reason for Consultation: Nephrolithiasis Attending Physician: Matthew Akins MD History of Present Illness This is a 62-year-old male who presented to the emergency department secondary to some right lower quadrant abdominal pain. The patient denied any back or flank pain. He also denied any fevers, shakes, or chills. He denies any dysuria or hematuria. He does note that with his abdominal pain he had some nausea and vomiting. Because of this he presented to the emergency department as noted below. He did feel as though he may have been passing a kidney stone although he admits that he has never had any kidney stones to the best of his knowledge before. In addition to his other symptoms the patient does report some symptoms of difficulty urinating. He does note some weakness of his urine stream for which he had been prescribed Flomax. He does admit that he only takes his Flomax intermittently when he feels as though he is having difficulty urinating and does not take it on a regular basis. In addition to the symptoms noted above the patient reports that he exercises daily trying to walk approximately a mile a day but he does admit towards the end of his walk he gets short winded more than usual and he also developed some chest pressure. Since arrival to the hospital the patient has had labs and imaging which I independent reviewed. The patient has had a CT scan of the chest that was negative for pneumonia or pulmonary emboli. He did have a chest x-ray that showed no evidence of pneumonia. A CT scan of the abdomen and pelvis did show that patient had a 4 mm kidney stone near the right ureterovesical junction. It was difficult to assess whether or not this had already passed into the bladder lumen. There was some mild right hydronephrosis noted. Patient also was noted to have prostate a megaly with evidence of chronic bladder outlet obstruction on this study. Labs include a CBC her white blood cell count, hemoglobin, hematocrit, and platelet count were all normal. Chemistry profile showed sodium, potassium, BUN, and creatinine were normal. Urinalysis showed trace leukocyte Estrace but was otherwise not indicative of infection. A COVID test was negative. At the time of my interview the patient was resting comfortably in bed and he was in no distress. Allergies Allergy/AdvReac Type Severity Reaction Status Date / Time No Known Allergies Allergy Unverified 02/03/23 07:45 Home Medications Medication Instructions Recorded Confirmed Type aspirin 81 mg tablet,delayed 81 mg PO DAILY 02/03/23 02/03/23 History release lisinopril 10 mg tablet 10 mg PO DAILY 02/03/23 02/03/23 History tamsulosin 0.4 mg capsule (Flomax) 0.4 mg PO DAILY PRN Urinary 02/03/23 02/03/23 History Retention Patient History Medical History BPH (benign prostatic hyperplasia) Fatty liver HTN (hypertension) Surgical History No significant past surgical history Family History Father Heart disease Social History Smoking Status: Never smoker Second Hand Exposure: No; Do You Dip or Chew Tobacco: No; Tobacco Cessation Education Requested by Patient: No Hx Alcohol Use: Yes Alcohol type: beer and wine Alcohol Intake Frequency: 2-3 x/Week Hx Substance Use: No Preferred Language: Estonian Communication Ability: Effective Beliefs That Will Affect Care: None Current Living Situation: Alone Other Information That Helps Us Care for You: No Feels Safe at Home: Yes Assistive Devices: None Review of Systems Constitutional: no fever and no chills Eyes: no eye pain Ear, Nose, Mouth, Throat: no ear pain Respiratory: + dyspnea on exertion; no cough Cardiovascular: + chest pain and + dyspnea on exertion Gastrointestinal: + abdominal pain, + nausea and + vomiting Genitourinary: + as per Subjective / HPI Musculoskeletal: no back pain Integumentary: no rash Neurologic: no localized weakness Physical Exam Constitutional: WD/WN, vitals as above Eyes: no conjunctival abnormality ENMT: Ears: no hearing impairment and no external ear abnormality Mouth: no oropharynx abnormality Neck: trachea midline Respiratory: normal respiratory effort, lungs clear to auscultation Cardiovascular: Rate/Rhythm: regular rate and regular rhythm Gastrointestinal (Abdomen): Abdomen is soft, nonrigid, nondistended. At the time of my exam there is no pain noted with palpation. Musculoskeletal: No calf tenderness Skin: no rashes Neurologic: moves all extremities Psychiatric: A+Ox3, euthymic affect Genitourinary: no CVA tenderness Results & Data Vital Signs (Past 12 Hours) Vital Signs Temp Pulse Pulse Resp BP BP Pulse Ox 02/03/23 15:55 02/03/23 16:01 36.5 C 82 18 144/77 H 96 02/03/23 11:56 69 02/03/23 14:17 67 18 150/94 H 100 02/03/23 11:05 58 L 18 119/68 98 02/03/23 09:49 72 18 129/73 99 02/03/23 09:44 99 02/03/23 09:30 84 13 98 02/03/23 09:20 83 21 99 02/03/23 09:10 82 15 99 02/03/23 09:00 69 14 97 02/03/23 08:56 72 25 H 98 02/03/23 08:56 147/73 H 02/03/23 08:30 75 13 97 02/03/23 08:20 75 16 95 04/29/23 08:10 75 23 96 02/03/23 08:00 68 16 97 02/03/23 07:50 87 17 95 02/03/23 07:40 88 19 97 02/03/23 07:51 89 02/03/23 08:01 96 02/03/23 07:39 88 18 130/88 98 02/03/23 07:28 36.3 C L 85 20 152/67 H 98 Pulse Ox O2 Del Method O2 Del Method 02/03/23 15:55 96 Room Air 02/03/23 16:01 Room Air 02/03/23 11:56 02/03/23 14:17 Room Air 02/03/23 11:05 Room Air 02/03/23 09:49 Room Air 02/03/23 09:44 02/03/23 09:30 02/03/23 09:20 02/03/23 09:10 02/03/23 09:00 02/03/23 08:56 02/03/23 08:56 02/03/23 08:30 02/03/23 08:20 02/03/23 08:10 02/03/23 08:00 02/03/23 07:50 02/03/23 07:40 02/03/23 07:51 02/03/23 08:01 Room Air 02/03/23 07:39 Room Air 02/03/23 07:28 Room Air PG Care Time/CCT Total # of Minutes Spent Total Time Spent with Patient: Total time spent is greater than 50% in coordination of care (as documented) at patient's floor/unit and/or counseling patient: Coding Level of Care Code 00709 IN/OBS CONSULT LVL 5,80M Diagnoses BPH (benign prostatic hyperplasia) N40.0 Right distal ureteral calculus N20.1
[2023-02-03] MEDS: METOPROLOL TARTRATE 25 MG TAB PO SCH (20:10)
[2023-02-03] MEDS: TAMSULOSIN HCL 0.4 MG CAP PO SCH (20:10)
[2023-02-04] MEDS ORDERED: Heparin IV Adult Wt-Based Standard *NO* Bolus Protocol IV SCH (02:29)
[2023-02-04] MEDS ORDERED: ATORVASTATIN 40 MG TAB PO STA (02:40)
[2023-02-04] MEDS: NITROGLYCERIN 2% OINTMENT 30GM TUBE EXT SCH ×4 (03:01→20:21)
[2023-02-04] MEDS: HEPARIN SODIUM/DEXTROSE 25,000 UNITS/500 ML BAG IV SCH ×2 (03:18→20:58)
[2023-02-04 03:53] LABS: Hematocrit (blood only) 39.6 % (42.0-52.0); Hemoglobin 13.8 g/dl (14.0-18.0); Mean Corpuscular Hemoglobin 30.8 pg (25.0-34.0); Mean Corpuscular Hgb Conc 34.8 g/dL (32.0-36.0); Mean Corpuscular Volume 88.4 fL (80.0-100.0); Mean Platelet Volume 10.6 fL (9.4-12.4); Platelet Count 221 K/uL (130-400); RDW Coefficient of Variation 12.2 % (11.5-14.5); RDW Standard Deviation 39.6 fL (36.4-46.3); Red Blood Count 4.48 M/uL (4.70-6.10); White Blood Count 7.45 K/ul (4.8-10.8)
[2023-02-04 04:07] LABS: Albumin Globulin Ratio 1.7 (0.9-2); BUN Creatinine Ratio 19.2 (10-20); Bilirubin,Total 1.2 mg/dl (0.2-1.0); Calcium 8.9 mg/dl (8.6-10.3); Chol HDL Ratio 3.9 (0-5); Creatinine Clr Calc Pharmacy 100.1 ml/min; Est GFR (African American) 111.3 ml/min; Est GFR (Non-African American) 96.1 ml/min; Globulin 2.3 gm/dl (2.5-4.0); Potassium 3.9 mmol/L (3.5-5.1); Total Protein 6.3 gm/dl (6.0-8.3)
[2023-02-04 04:44] LABS: Partial Thromboplastin Time 27.8 Seconds (21.0-31.0)
[2023-02-04 07:27] LABS: Partial Thromboplastin Ratio 1.6
[2023-02-04 07:31] LABS: Partial Thromboplastin Time 46.3 Seconds (21.0-31.0)
[2023-02-04] MEDS: ATORVASTATIN 40 MG TAB PO SCH (08:29)
[2023-02-04] MEDS: ASPIRIN 81 MG ECTAB PO SCH (08:29)
[2023-02-04] MEDS: METOPROLOL TARTRATE 25 MG TAB PO SCH ×2 (08:29→20:14)
--- NOTE | 2023-02-04 08:45 | Urology Progress Note ---
Date of Service February 04, 2023 Assessment & Plan (1) Non-ST elevation TN (NSTEMI): (2) Right distal ureteral calculus: Plan Distal right ureteral calculus; non-STEMI Unfortunately, I think there is a high probability that the distal ureteral calculus may have provoked some of his cardiac findingsobviously it is impossible to know with certainty Currently on a heparin drip Currently with minimal to no symptoms from the stone and based on CT appearance, I think there is a high probability that the stone has either passed or passage is imminent Frequently, discomfort radiating to the scrotum or testicle implies a UVJ position of the stone which would match the findings on CT I have discussed that given his lack of severe symptoms and hemodynamic stability, I think observation is the best course of action He has started tamsulosin and is being hydrated I would try to avoid any surgical intervention if at all possible We will certainly continue to follow Admission and Anticipated Discharge Date Admission Date: February 03, 2023 Subjective Overnight consultation reviewed in detail Patient personally seen and examined this morning I also reviewed imaging and all lab work His CT shows a very small calcification which is nearly at midline in his bladder but I suspect still may be within the distal ureter/UVJ His creatinine is totally appropriate, he has no leukocytosis He had a repeat troponin collected around midnight which showed further elevation He denies any chest pain this morning He has no abdominal pain but he has minimal sensation of abnormality in the scrotum He is currently on a heparin gtt. No prior history of kidney stones Physical Exam Physical Exam: Abdomen soft, nontender, no demonstrable CVA tenderness Heparin GTT running Normotensive, appropriate heart rate Results & Data Vital Signs (Past 12 Hours) Vital Signs Temp Pulse Pulse Resp BP Pulse Ox O2 Del Method 02/04/23 08:21 36.5 C 65 20 123/67 97 Room Air 02/04/23 02:46 36.6 C 67 18 125/77 97 Room Air 02/04/23 02:04 36.8 C 66 18 107/68 98 Room Air 02/03/23 23:07 64 02/03/23 22:35 36.6 C 67 16 110/67 Room Air PG Care Time/CCT Total # of Minutes Spent Total Time Spent with Patient: Total time spent is greater than 50% in coordination of care (as documented) at patient's floor/unit and/or counseling patient: Coding Level of Care Code 97412 SUB INP/OBS CARE 35MIN Diagnoses Non-ST elevation TN (NSTEMI) I21.4 Right distal ureteral calculus N20.1
[2023-02-04] MEDS: NITROGLYCERIN SL 0.4 MG/TAB TAB SL PRN ×2 (10:08→10:20)
--- NOTE | 2023-02-04 10:31 | Hospitalist Progress Note ---
Date of Service February 04, 2023 Assessment & Plan (1) Non-ST elevation [place] (NSTEMI): (2) Right distal ureteral calculus: (3) HTN (hypertension): (4) BPH (benign prostatic hyperplasia): Plan 62-year-old male with recent history of NSTEMI in setting of hypertensive urgency with negative stress test, BPH who presented to ED with abdominal pain and admitted with right ureteral stone and NSTEMI. CT abdomen/pelvis 1. There is a 4 mm calculus either protruding from the right vesicoureteral junction or already passed into the bladder lumen. There is mild associated right hydroureteronephrosis. 2. No additional calculi are identified in either kidney on this contrast- enhanced examination. 3. Hepatomegaly and hepatic steatosis. 4. Diverticulosis of the left colon without CT evidence of acute diverticulitis. 5. Prostatomegaly with evidence of chronic bladder outlet obstruction. CTA chest- No evidence of PE, lungs clear Troponin trend- 353->462->329->517 Echocardiogram-EF 55 to 60% with moderate size apical and septal wall motion abnormality with hypokinesis of the segments, grade 1 diastolic dysfunction, no significant valvular pathology. NSTEMI-having intermittent chest pressure with some ischemic changes in EKG and troponin elevation. Echo as above cardiology following. Currently on aspirin, statin, beta-kevin, heparin drip, Nitropaste. Continue to trend troponin. Defer cardiac cath to cardiology Right ureteral stone-4 mm stone noted in CT as above, likely passed. No further pain noted. Strain all urine, send stone for microscopy if passes. Continue Flomax. Seen by urology Essential hypertension-BP stable, on Lopressor, lisinopril BPH-continue Flomax DVT prophylaxis-IV heparin Disposition-admit to inpatient, PCU telemetry for further management for NSTEMI Admission and Anticipated Discharge Date Admission Date: February 03, 2023 Subjective Patient was seen and examined at bedside. His pain from ureteral stone has not recurred. However he had episode of chest pressure last night and at bedtime. No fever, chills, shortness breath nausea vomiting. Review of Systems Review of Systems: All systems reviewed & are unremarkable except as noted in Subjective Physical Exam Physical Exam: General: Sitting comfortably in bed, not in distress, on room air HEENT: EOMI, DARWIN, MMM Chest: Clear breath sounds bilaterally, no wheezes or crackles CVS: Regular rate and rhythm, normal heart sounds, no murmur Abdomen: Soft, non tender, not distended, normal bowel sounds Neuro: Awake, alert, oriented, conversing well, non focal Extremities: No cyanosis, clubbing or edema Results & Data Results & Data Vital Signs (Past 12 Hours) Vital Signs Temp Pulse Pulse Resp BP Pulse Ox O2 Del Method 02/04/23 08:21 36.5 C 65 20 123/67 97 Room Air 02/04/23 02:46 36.6 C 67 18 125/77 97 Room Air 02/04/23 02:04 36.8 C 66 18 107/68 98 Room Air 02/03/23 23:07 64 02/03/23 22:35 36.6 C 67 16 110/67 Room Air Laboratory Results Short CBC 02/04/23 Range/Units 03:09 WBC 7.45 (4.8-10.8) K/ul Hgb 13.8 L (14.0-18.0) g/dl Hct 39.6 L (42.0-52.0) % Plt Count 221 (130-400) K/uL [facility] 02/04/23 03:09 Sodium 140 Potassium 3.9 Chloride 107 Carbon Dioxide 26 BUN 15 Creatinine 0.78 Glucose 126 H Calcium 8.9 Liver Function 02/04/23 Range/Units 03:09 Total Bilirubin 1.2 H (0.2-1.0) mg/dl AST 32 (13-39) U/L ALT 76 H (7-52) U/L Alkaline Phosphatase 96 (34-104) U/L Albumin 4.0 (3.4-5.0) gm/dl Medications Administered Current Inpatient Medications Acetaminophen (Acetaminophen 325 Mg Tab) 650 mg PO Q4H PRN PRN Reason: Pain or Fever Stop: 03/05/23 15:54 Last Admin: 02/04/23 08:29 Dose: 650 mg Aspirin (Aspirin 81 Mg Ectab) 81 mg PO DAILY [facility] Stop: 03/06/23 08:59 Last Admin: 02/04/23 08:29 Dose: 81 mg Atorvastatin Calcium (Atorvastatin 40 Mg Tab) 40 mg PO QAM [facility] Stop: 03/06/23 08:59 Last Admin: 02/04/23 08:29 Dose: 40 mg Heparin Sodium/Dextrose (Heparin Sodium/Dextrose) 25,000 units in 500 mls @ 27 mls/hr IV .[id number] [facility]; Protocol Stop: 03/06/23 02:44 Last Titration: 02/04/23 06:53 Dose: 1,350 units/hr, 27 mls/hr Lisinopril (Lisinopril 10 Mg Tab) 10 mg PO DAILY [facility] Stop: 03/06/23 08:59 Metoprolol Tartrate (Metoprolol Tartrate 25 Mg Tab) 25 mg PO BID [facility] Stop: 03/05/23 20:59 Last Admin: 02/04/23 08:29 Dose: 25 mg Nitroglycerin (Nitroglycerin Sl 0.4 Mg/Tab Tab) 0.4 mg SL UD PRN PRN Reason: Chest Pain Stop: 03/05/23 15:54 Last Admin: 02/04/23 10:08 Dose: 0.4 mg Nitroglycerin (Nitroglycerin 2% Ointment 30gm Tube) 0.5 inch EXT Q6H [facility] Stop: 03/06/23 02:44 Last Admin: 02/04/23 08:50 Dose: 0.5 inch Ondansetron HCl (Ondansetron Inj 2 Mg/Ml 2 Ml Vial) 4 mg IV Q6H PRN PRN Reason: Nausea Stop: 03/05/23 15:54 Tamsulosin HCl (Tamsulosin Hcl 0.4 Mg Cap) 0.4 mg PO HS [facility] Stop: 03/05/23 20:59 Last Admin: 02/03/23 20:10 Dose: 0.4 mg
[2023-02-04] MEDS ORDERED: MoRPHine SULFATE 2 MG/ML CARP IV PRN (10:43)
[2023-02-04] MEDS: lisinopril 10 MG TAB PO SCH (11:15)
--- NOTE | 2023-02-04 11:26 | Cardiology Progress Note ---
Date of Service February 04, 2023 Assessment & Plan (1) Non-ST elevation [place] (NSTEMI): (2) HTN (hypertension): (3) Elevated liver enzymes: (4) Fatty liver: (5) Right distal ureteral calculus: Plan Since his initial cardiology evaluation in the emergency room, the patient has developed dynamic EKG changes, uptrending HS troponin levels, and waxing and waning chest and arm pain consistent with angina and develoment of a NSTEMI. This is further supported by the results of his echocardiogram this morning that revealed a moderate-sized septal wall motion abnormality at the mid and apical levels and apical wall motion abnormality. Left ventricular ejection fraction however is preserved at 55 -60 % with no significant valvular heart disease. -Continue medical therapy with aspirin 81 mg daily, metoprolol tartrate 25 mg twice daily, unfractioned heparin infusion, 1/2 inch of nitroglycerin paste, lisinopril 10 mg daily, and atorvastatin 40 mg daily. Bilirubin and ALT levels have trended down compared to initial presentation. Patient comfortable at present. We will proceed with making the patient n.p.o. after midnight and plan for cardiac catheterization tomorrow 02/05/2023 or sooner if he develops worsening symptoms. Urology input noted and appreciated. We will proceed with adding normal saline at 80 mL an hour for hydration given his calculus in the distal right ureter, and for prophylaxis with anticipated need for radiographic contrast for cardiac catheterization tomorrow.At present, the patient's right flank, groin pain that prompted him to come to the hospital has resolved. Per patient request I attempted to reach his sister, Mary Yepez [phone]. 40 minutes were spent in direct patient care including review of his records and studies, performing a history and physical exam, and counseling the patient with regards to treatment options and plan. Admission and Anticipated Discharge Date Admission Date: February 04, 2023 Subjective Patient seen in cardiology follow-up. At present at the time of my bedside evaluation 02/04/2023 at 11:10 AM he was feeling well without any chest discomfort or symptoms of angina. He did however have symptoms earlier this morning and received 2 doses of sublingual nitroglycerin most recent of which was at 10:20 AM. The nitroglycerin administered for his symptoms of left-sided chest discomfort rating down his left arm. These have since resolved. Since his initial cardiology evaluation in the emergency room yesterday afternoon his high-sensitivity troponin has continued to climb. Measurement performed at 12:15 AM was up to 517 PG per mL. I discussed his case by phone with Dr. Alvarado at 2:30 am. An EKG performed at 1:50 AM revealed subtle new ST elevation of just about 1 mm in the high lateral leads I and aVL. At that time he had no associated anginal symptoms. Unfractioned heparin infusion was initiated as well as placement of half inch of nitroglycerin ointment. Repeat EKG performed this morning at 5:53 AM revealed normal sinus rhythm with resolution of the previous subtle ST elevation in lead I and aVL with new T wave inversions in I an aVL and T wave inversion in lead V2. A tracing was again performed this morning at 10:14 AM with noted T wave inversion in aVL and resolution of the T wave inversion in V2. No ST segment elevation on that tracing. Physical Exam Constitutional: WD/WN, vitals as above Eyes: PERRL, conjunctivae normal, anicteric sclerae Respiratory: normal respiratory effort, lungs clear to auscultation Cardiovascular: RRR, no murmur, no edema Gastrointestinal (Abdomen): normal bowel sounds, soft, nontender, no hepatosplenomegaly Neurologic: PERRL, EOMI, accommodation nl, no face palsy, no dysarthria Results & Data Vital Signs (Past 12 Hours) Vital Signs Temp Pulse Resp BP Pulse Ox O2 Del Method 02/04/23 09:45 83 20 125/77 96 Room Air 02/04/23 10:25 83 18 112/70 96 Room Air 02/04/23 08:21 36.5 C 65 20 123/67 97 Room Air 02/04/23 02:46 36.6 C 67 18 125/77 97 Room Air 02/04/23 02:04 36.8 C 66 18 107/68 98 Room Air Laboratory Results Cardiac Enzymes 02/03/23 02/03/23 02/04/23 Range/Units 12:37 18:22 00:15 AST (13-39) U/L Troponin I High Sens 462.1 H* D 329.4 H* D 517.4 H* D (0-20) pg/ml 02/04/23 Range/Units 03:09 AST 32 (13-39) U/L Troponin I High Sens (0-20) pg/ml Coagulation 02/04/23 02/04/23 Range/Units 03:09 06:15 APTT 27.8 46.3 H* (21.0-31.0) Seconds Lipids 02/04/23 Range/Units 03:09 Triglycerides 72 (0-150) mg/dl Cholesterol 126 (0-200) mg/dl HDL Cholesterol 32 mg/dl Cholesterol/HDL Ratio 3.9 (0-5) CBC 02/04/23 Range/Units 03:09 WBC 7.45 (4.8-10.8) K/ul RBC 4.48 L (4.70-6.10) M/uL Hgb 13.8 L (14.0-18.0) g/dl Hct 39.6 L (42.0-52.0) % Plt Count 221 (130-400) K/uL Comprehensive Metabolic Panel 02/04/23 Range/Units 03:09 Sodium 140 (136-145) mmol/L Potassium 3.9 (3.5-5.1) mmol/L Chloride 107 (98-107) mmol/L Carbon Dioxide 26 (21-32) mmol/L BUN 15 (6-23) mg/dl Creatinine 0.78 (0.6-1.4) mg/dl Glucose 126 H (70-99(Fasting)) mg/dl Calcium 8.9 (8.6-10.3) mg/dl AST 32 (13-39) U/L ALT 76 H (7-52) U/L Alkaline Phosphatase 96 (34-104) U/L Total Protein 6.3 (6.0-8.3) gm/dl Albumin 4.0 (3.4-5.0) gm/dl Intake and Output 02/03/23 02/04/23 02/04/23 22:59 06:59 14:59 Intake Total 240 / 1436.75 196.75 / 1436.75 Output Total 300 / 550 250 / 550 100 / 100 Balance -60 / 886.75 -53.25 / 886.75 -100 / -100 Intake: IV 96.75 / 1096.75 Heparin Sodium/Dextrose 25,000 96.75 / 96.75 units In 500 ml @ 1,350 UNITS/ HR 27 mls/hr IV .[id number] [facility] Rx #:[id number] Oral 240 / 340 100 / 340 Output: Urine 300 / 550 250 / 550 100 / 100 Other: # Unmeasured Voids 0 Weight 79.832 kg 80.286 kg Weight Measurement Method Last Office Visit Built in [facility]
[2023-02-04] MEDS ORDERED: SODIUM CHLORIDE 0.9% 500 ML IV SCH (11:30)
[2023-02-04] MEDS: SODIUM CHLORIDE 0.9% 1000ML 1,000 ML IV SCH ×2 (12:53→22:54)
--- NOTE | 2023-02-04 12:55 | Communication Note ---
Date of Service: February 04, 2023 I was able to connect with the patient's sister, Mary, by phone. I provided updates as per pt's request. Questions answered to his satisfaction.
[2023-02-04] MEDS: TAMSULOSIN HCL 0.4 MG CAP PO SCH (20:14)
[2023-02-05] MEDS: NITROGLYCERIN 2% OINTMENT 30GM TUBE EXT SCH ×2 (01:58→12:35)
[2023-02-05 03:27] LABS: Partial Thromboplastin Ratio 3.1
[2023-02-05 04:01] LABS: Partial Thromboplastin Time 86.3 Seconds (21.0-31.0)
[2023-02-05 07:28] LABS: Estimated Average Glucose 134 mg/dl; Hemoglobin A1C 6.3 % (4.5-5.6)
[2023-02-05 07:42] LABS: Hematocrit (blood only) 40.7 % (42.0-52.0); Mean Corpuscular Hemoglobin 30.4 pg (25.0-34.0); Mean Corpuscular Hgb Conc 34.4 g/dL (32.0-36.0); Mean Corpuscular Volume 88.5 fL (80.0-100.0); Mean Platelet Volume 10.5 fL (9.4-12.4); Platelet Count 223 K/uL (130-400); RDW Coefficient of Variation 12.2 % (11.5-14.5); RDW Standard Deviation 39.7 fL (36.4-46.3); White Blood Count 6.92 K/ul (4.8-10.8)
[2023-02-05 07:59] LABS: Albumin Globulin Ratio 1.7 (0.9-2); BUN Creatinine Ratio 14.5 (10-20); Bilirubin,Total 0.8 mg/dl (0.2-1.0); Calcium 8.7 mg/dl (8.6-10.3); Creatinine Clr Calc Pharmacy 102.7 ml/min; Est GFR (African American) 112.5 ml/min; Est GFR (Non-African American) 97.1 ml/min; Globulin 2.3 gm/dl (2.5-4.0); Potassium 3.7 mmol/L (3.5-5.1); Total Protein 6.3 gm/dl (6.0-8.3)
--- NOTE | 2023-02-05 08:48 | Cardiology Progress Note ---
Date of Service February 05, 2023 Assessment & Plan (1) Non-ST elevation [place] (NSTEMI): (2) HTN (hypertension): (3) Elevated liver enzymes: (4) Fatty liver: (5) Right distal ureteral calculus: Plan Patient without recurrent angina. High-sensitivity troponin peaked at 517 PG per mL, most recent measurement 480 PG per mL Echocardiogram performed 02/04/2023 revealed a moderate-sized wall motion abnormality with hypokinesis of the septum at the mid and apical levels, and apical hypokinesis, normal LVEF in the range of 55 to 60%. Repeat EKG performed today 02/05/2023 and interpreted independently: Normal sinus rhythm at 65 bpm, subtle T wave inversions noted in the high lateral leads I and aVL. Continue aspirin, metoprolol, lisinopril, flomax, and atorvastatin. 1/2 inch of nitroglycerin ointment still in place. Heparin held this am at 7:11 am, for tentative cardiac catheterization. Patient's case discussed with Dr Rodríguez of interventional cardiology , plan for cardiac catheterization today. Admission and Anticipated Discharge Date Admission Date: February 04, 2023 Subjective Patient seen in cardiology follow-up. He notes feeling well since I had seen him yesterday. No recurrent episodes of angina or flank pain. Telemetry reveals sinus rhythm in the 80s without arrhythmia. He has been on normal saline infusion 80 mL/h since yesterday, and has been tolerating heparin well. Review of Systems Review of Systems: All systems reviewed & are unremarkable except as noted in HPI & below Physical Exam Physical Exam: Temp Pulse Resp BP Pulse Ox O2 Del Method 36.5 C 81 18 131/60 96 Room Air 02/05/23 07:41 02/05/23 07:41 02/05/23 07:41 02/05/23 07:41 02/05/23 07:41 02/05/23 07:41 Constitutional: WD/WN, vitals as above Eyes: PERRL, conjunctivae normal, anicteric sclerae Respiratory: normal respiratory effort, lungs clear to auscultation Cardiovascular: RRR, no murmur, no edema Gastrointestinal (Abdomen): normal bowel sounds, soft, nontender, no hepatosplenomegaly Neurologic: PERRL, EOMI, accommodation nl, no face palsy, no dysarthria Results & Data Laboratory Results Cardiac Enzymes 02/04/23 02/04/23 02/05/23 Range/Units 10:34 17:55 01:57 AST (13-39) U/L Troponin I High Sens 380.4 H* D 463.3 H* D 480.4 H* (0-20) pg/ml 02/05/23 Range/Units 07:25 AST 29 (13-39) U/L Troponin I High Sens (0-20) pg/ml Coagulation 02/05/23 Range/Units 01:57 APTT 86.3 H* (21.0-31.0) Seconds CBC 02/05/23 Range/Units 07:25 WBC 6.92 (4.8-10.8) K/ul RBC 4.60 L (4.70-6.10) M/uL Hgb 14.0 (14.0-18.0) g/dl Hct 40.7 L (42.0-52.0) % Plt Count 223 (130-400) K/uL Comprehensive Metabolic Panel 02/05/23 Range/Units 07:25 Sodium 140 (136-145) mmol/L Potassium 3.7 (3.5-5.1) mmol/L Chloride 107 (98-107) mmol/L Carbon Dioxide 29 (21-32) mmol/L BUN 11 (6-23) mg/dl Creatinine 0.76 (0.6-1.4) mg/dl Glucose 124 H (70-99(Fasting)) mg/dl Calcium 8.7 (8.6-10.3) mg/dl AST 29 (13-39) U/L ALT 68 H (7-52) U/L Alkaline Phosphatase 96 (34-104) U/L Total Protein 6.3 (6.0-8.3) gm/dl Albumin 4.0 (3.4-5.0) gm/dl Intake and Output 02/04/23 02/05/23 02/05/23 22:59 06:59 14:59 Intake Total 1981.583 / 2218.883 191.7 / 2218.883 45.6 / 45.6 Output Total 450 / 550 Balance 1531.583 / 1668.883 191.7 / 1668.883 45.6 / 45.6 Intake: IV 1681.583 / 1918.883 191.7 / 45.6 / 45.6 Heparin Sodium/Dextrose 25,000 380.25 / 617.55 191.7 / 617.55 45.6 / 45.6 units In 500 ml @ 1,350 UNITS/ HR 27 mls/hr IV .[id number] [facility] Rx #:[id number] Sodium Chloride 0.9% 1000ML 1, 801.333 / 801.333 000 ml @ 80 mls/hr IV .[id number] [facility] Rx#:[id number] Sodium Chloride 0.9% 500 ml @ 500 / 500 80 mls/hr IV .[id number] [facility] Rx#: [id number] Oral 300 / 300 Output: Urine 450 / 550 Other: Weight 77.655 kg 77.655 kg Weight Measurement Method Built in [facility] Patient Weight 02/06/23 06:59 Weight 77.655 kg
--- NOTE | 2023-02-05 08:49 | Electrocardiogram Report ---
Test Reason : Blood Pressure : / mmHG Vent. Rate : 081 BPM Atrial Rate : 081 BPM P-R Int : 164 ms QRS Dur : 088 ms QT Int : 394 ms P-R-T Axes : 050 032 084 degrees QTc Int : 457 ms Sinus rhythm with Premature atrial complexes Otherwise normal ECG No previous ECGs available Confirmed by Betito Bernard ([id number]) on 02/05/2023 8:49:26 AM Referred By: REFERRED SELF Confirmed By:Betito Bernard
--- NOTE | 2023-02-05 08:51 | Electrocardiogram Report ---
Test Reason : Blood Pressure : / mmHG Vent. Rate : 081 BPM Atrial Rate : 081 BPM P-R Int : 162 ms QRS Dur : 090 ms QT Int : 384 ms P-R-T Axes : 039 021 081 degrees QTc Int : 446 ms Normal sinus rhythm with sinus arrhythmia Normal ECG When compared with ECG of 03-FEB-2023 07:59, (unconfirmed) No significant change Confirmed by Betito Bernard ([id number]) on 02/05/2023 8:51:16 AM Referred By: REFERRED SELF Confirmed By:Betito Bernard
--- NOTE | 2023-02-05 09:19 | Hospitalist Progress Note ---
Date of Service February 05, 2023 Assessment & Plan (1) Non-ST elevation [place] (NSTEMI): (2) Right distal ureteral calculus: (3) HTN (hypertension): (4) BPH (benign prostatic hyperplasia): Plan 62-year-old male with recent history of NSTEMI in setting of hypertensive urgency with negative stress test, BPH who presented to ED with abdominal pain and admitted with right ureteral stone and NSTEMI. CT abdomen/pelvis 1. There is a 4 mm calculus either protruding from the right vesicoureteral junction or already passed into the bladder lumen. There is mild associated right hydroureteronephrosis. 2. No additional calculi are identified in either kidney on this contrast- enhanced examination. 3. Hepatomegaly and hepatic steatosis. 4. Diverticulosis of the left colon without CT evidence of acute diverticulitis. 5. Prostatomegaly with evidence of chronic bladder outlet obstruction. CTA chest- No evidence of PE, lungs clear Troponin trend- 353->462->329->517->517->380->463->480 Echocardiogram-EF 55 to 60% with moderate size apical and septal wall motion abnormality with hypokinesis of the segments, grade 1 diastolic dysfunction, no significant valvular pathology. NSTEMI-serial troponin and echo as above. No more chest pain since yesterday. Plan for cardiac cath today and heparin drip has been discontinued for the same. Currently on aspirin, statin, beta-kevin, Nitropaste. Right ureteral stone-4 mm stone noted in CT as above, likely passed. No further pain noted. Strain all urine, send stone for microscopy if passes. Continue Flomax. Seen by urology Essential hypertension-BP stable, on Lopressor, lisinopril BPH-continue Flomax Elevated ALT-continue to trend down. DVT prophylaxis-heparin drip on hold for cardiac cath Disposition-plan for cardiac cath today Admission and Anticipated Discharge Date Admission Date: February 04, 2023 Subjective Patient was seen and examined at bedside. He denies any recurrence of chest pain since yesterday morning. No recurrence of ureteral calculi pain since admission. Urine has been dark. No fever, chills, shortness of breath, nausea or vomiting. He is waiting for the cardiac cath. He is requesting for excuse from work at discharge. Review of Systems Review of Systems: All systems reviewed & are unremarkable except as noted in Subjective Physical Exam Physical Exam: General: Sitting comfortably in bed, not in distress, on room air HEENT: EOMI, DARWIN, MMM Chest: Clear breath sounds bilaterally, no wheezes or crackles CVS: Regular rate and rhythm, normal heart sounds, no murmur Abdomen: Soft, non tender, not distended, normal bowel sounds Neuro: Awake, alert, oriented, conversing well, non focal Extremities: No cyanosis, clubbing or edema Results & Data Results & Data Vital Signs (Past 12 Hours) Vital Signs Temp Pulse Pulse Resp BP Pulse Ox O2 Del Method 02/05/23 08:58 83 02/05/23 07:41 36.5 C 81 18 131/60 96 Room Air 02/05/23 02:00 36.6 C 61 18 109/64 96 Room Air 02/04/23 22:45 63 02/04/23 22:38 36.6 C 70 17 122/67 97 Room Air Laboratory Results Short CBC 02/05/23 Range/Units 07:25 WBC 6.92 (4.8-10.8) K/ul Hgb 14.0 (14.0-18.0) g/dl Hct 40.7 L (42.0-52.0) % Plt Count 223 (130-400) K/uL BMP 02/05/23 07:25 Sodium 140 Potassium 3.7 Chloride 107 Carbon Dioxide 29 BUN 11 Creatinine 0.76 Glucose 124 H Calcium 8.7 Liver Function 02/05/23 Range/Units 07:25 Total Bilirubin 0.8 (0.2-1.0) mg/dl AST 29 (13-39) U/L ALT 68 H (7-52) U/L Alkaline Phosphatase 96 (34-104) U/L Albumin 4.0 (3.4-5.0) gm/dl Medications Administered Current Inpatient Medications Acetaminophen (Acetaminophen 325 Mg Tab) 650 mg PO Q4H PRN PRN Reason: Pain or Fever Stop: 03/05/23 15:54 Last Admin: 02/04/23 08:29 Dose: 650 mg Aspirin (Aspirin 81 Mg Ectab) 81 mg PO DAILY [facility] Stop: 03/06/23 08:59 Last Admin: 02/04/23 08:29 Dose: 81 mg Atorvastatin Calcium (Atorvastatin 40 Mg Tab) 40 mg PO QAM [facility] Stop: 03/06/23 08:59 Last Admin: 02/04/23 08:29 Dose: 40 mg Heparin Sodium/Dextrose (Heparin Sodium/Dextrose) 25,000 units in 500 mls @ 24 mls/hr IV .[id number] [facility]; Protocol Stop: 03/06/23 02:44 Last Titration: 02/05/23 07:00 Dose: 1,200 units/hr, 24 mls/hr Sodium Chloride (Nss 1000ml) 1,000 mls @ 80 mls/hr IV .[id number] [facility] Stop: 03/06/23 11:44 Last Admin: 02/04/23 22:54 Dose: 80 mls/hr Lisinopril (Lisinopril 10 Mg Tab) 10 mg PO DAILY [facility] Stop: 03/06/23 08:59 Last Admin: 02/04/23 11:15 Dose: 10 mg Metoprolol Tartrate (Metoprolol Tartrate 25 Mg Tab) 25 mg PO BID [facility] Stop: 03/05/23 20:59 Last Admin: 02/04/23 20:14 Dose: 25 mg Morphine Sulfate (Morphine Sulfate 2 Mg/Ml Carp) 2 mg IV Q4 PRN PRN Reason: Pain Stop: 02/18/23 10:42 Nitroglycerin (Nitroglycerin Sl 0.4 Mg/Tab Tab) 0.4 mg SL UD PRN PRN Reason: Chest Pain Stop: 03/05/23 15:54 Last Admin: 02/04/23 10:20 Dose: 0.4 mg Nitroglycerin (Nitroglycerin 2% Ointment 30gm Tube) 0.5 inch EXT Q6H [facility] Stop: 03/06/23 02:44 Last Admin: 02/05/23 01:58 Dose: 0.5 inch Ondansetron HCl (Ondansetron Inj 2 Mg/Ml 2 Ml Vial) 4 mg IV Q6H PRN PRN Reason: Nausea Stop: 03/05/23 15:54 Tamsulosin HCl (Tamsulosin Hcl 0.4 Mg Cap) 0.4 mg PO HS [facility] Stop: 03/05/23 20:59 Last Admin: 02/04/23 20:14 Dose: 0.4 mg
[2023-02-05] MEDS ORDERED: niCARdipine HCL INJ 2.5 MG/ML 10 ML AMP ONE (10:11)
[2023-02-05] MEDS ORDERED: MIDAZOLAM HCL 1 MG/ML 2ML VIAL ONE (10:11)
[2023-02-05] MEDS ORDERED: fentaNYL citrate PF 100 MCG/2 ML VIAL ONE (10:11)
[2023-02-05] MEDS ORDERED: HEPARIN (PORCINE) 1000 UNIT/ML 10 ML (CATH LAB USE ONLY) ONE (10:11)
[2023-02-05] MEDS ORDERED: NITROGLYCERIN/D5W 100MCG/ML 20ML SYR ONE (10:12)
[2023-02-05] MEDS ORDERED: TICAGRELOR 90 MG TAB ONE (11:10)
[2023-02-05] MEDS ORDERED: ASPIRIN 81 MG CHEW ONE (11:10)
[2023-02-05] MEDS: ASPIRIN 81 MG ECTAB PO SCH (11:11)
--- NOTE | 2023-02-05 11:17 | Urology Progress Note ---
Date of Service February 05, 2023 Assessment & Plan (1) Non-ST elevation [place] (NSTEMI): (2) Right distal ureteral calculus: Plan Distal right ureteral calculus; non-STEMI Afebrile and hemodynamically stable. Labs show no leukocytosis and normal renal function. Right flank/scrotal pain has resolved. Currently with no symptoms from the stone and based on CT appearance, there is a high probability that the stone has either passed or passage is imminent. No plan for urological intervention. Will continue with conservative management and observation. Continue flomax. Pt is to have cardiac cath later today. Urology will follow. Admission and Anticipated Discharge Date Admission Date: February 04, 2023 Subjective Patient examined at bedside this AM. Awake, resting in bed on arrival. No acute distress. Has been NPO for planned cardiac cath today. Heparin gtt on hold. Right flank/scrotal pain has resolved. Denies noticeable stone passage. Voiding without issue. No fevers. Review of Systems Constitutional: no fever and no chills Gastrointestinal: as per Subjective / HPI; no abdominal pain, no nausea and no vomiting Genitourinary: + as per Subjective / HPI Physical Exam Constitutional: no acute distress Respiratory: no respiratory distress and no labored breathing Skin: No visible rashes or lesions to exposed skin areas Neurologic: awake Psychiatric: A+Ox3, euthymic affect Results & Data Vital Signs (Past 12 Hours) Vital Signs Temp Pulse Pulse Resp BP Pulse Ox O2 Del Method 02/05/23 09:43 69 16 127/81 98 Room Air 02/05/23 08:58 83 02/05/23 07:41 36.5 C 81 18 131/60 96 Room Air 02/05/23 02:00 36.6 C 61 18 109/64 96 Room Air PG Care Time/CCT Total # of Minutes Spent Total Time Spent with Patient: Total time spent is greater than 50% in coordination of care (as documented) at patient's floor/unit and/or counseling patient: Coding Level of Care Code 39805 SUB INP/OBS CARE 2/35MIN Diagnoses Non-ST elevation [place] (NSTEMI) I21.4 Right distal ureteral calculus N20.1
--- NOTE | 2023-02-05 11:50 | Post Anesthesia Assessment ---
Date of Service February 05, 2023 Post Sedation Assessment Vital Signs Temp Pulse Pulse Resp BP Pulse Ox Pulse Ox 02/05/23 11:15 73 18 156/83 H 95 02/05/23 09:43 69 16 127/81 98 02/05/23 08:58 83 02/05/23 07:41 36.5 C 81 18 131/60 96 02/05/23 02:00 36.6 C 61 18 109/64 96 02/04/23 22:45 63 02/04/23 22:38 36.6 C 70 17 122/67 97 02/04/23 19:41 36.7 C 74 18 120/66 96 02/04/23 15:55 96 02/04/23 15:49 36.8 C 78 22 110/55 L 95 O2 Del Method O2 Del Method 02/05/23 11:15 Room Air 02/05/23 09:43 Room Air 02/05/23 08:58 02/05/23 07:41 Room Air 02/05/23 02:00 Room Air 02/04/23 22:45 02/04/23 22:38 Room Air 02/04/23 19:41 Room Air 02/04/23 15:55 Room Air 02/04/23 15:49 Room Air Recovery Score Activity: Moves 4 extremities Respiration: Deep Breath/Cough Circulation: +/-20% PreAnes Value Consciousness: Fully Awake Oxygen Saturation: > 92% On Room Air Post Anesthesia Score: 10 Discharge Sedation Level of Care: Fast Track Phase II Post Sedation Plan On clinical assessment, the patient appears to have tolerated the sedation without complications. Patient is recovering as anticipated. Patient will continue to be monitored by nursing and may be discharged when sedation discharge criteria are met per below protocol. Upon Completions of procedure up to 15 minutes continue every 5 minute vital signs and the P.A.R. score; then discharge to a Phase I or Fast Track to Phase II per the following guidelines: * Discharge Patient to appropriate Phase II area if PAR is 8 or greater or return to pre- procedure baseline. The post - procedure orders will be as directed. * If PAR score is less than 8 or not return to pre-procedure baseline then patient will follow Phase I monitoring till PAR is reached for Phase II. The Phase I may be done in procedure room or may call to secure a Phase I area. * If naloxone or flumazenil are used for reversal, hold in Phase I for continued monitoring from when last reversal dose was given for a minimum of 60 minutes or longer pending the nurse and/or physician discretion of patient condition before discharge to Phase II. Please call the Sedation Physician to re-evaluate and complete post-note for discharge to Phase II area. Do NOT discharge from procedure sedation or Phase 1 until post- sedation evaluation note is complete by procedure /sedation MD Sedation Discharge Instructions to be given to the patient at discharge to home. [facility] [place] Procedure Codes (Charges) Indication for Procedure Indication for procedure: NSTEMI Sedation/Anesthesia Procedure 1: Sedation/Anesthesia: 39842 Mod Sedation by the same physician;Init15 Min Child Age 5 & Up (Initial 15 min) Total Sedation Time (minutes): 47 Procedure 2: Sedation/Anesthesia: 96156 Mod Sedation by the same physician; Ea [id number] Minutes (Additional 32 min) Total Sedation Time (minutes): 47
--- NOTE | 2023-02-05 11:51 | Cardiac Catheterization ---
[facility] Data: [employer] Cardiac Status Clinical evaluation leading to the procedure CAD Presenation: Non STEMI Anginal Classification: CCS IV Heart Failure: No Cardiogenic Shock within 24 Hours: No Cardiac Arrest within 24 Hours: No Imaging Studies Past 6 Months: Yes Stress Studies Past 6 Months: Yes Coronary Anatomy Dominant: Right Left Main (% Stenosis): Normal LAD (% Stenosis): Mid (99% thrombus) and Distal (Long eccentric 80 to 90%) Circumflex (% Stenosis): Proximal (40 to 50%, 50 to 60% before OM) OM1 (% Stenosis): Ostial (Ostial to proximal 30 to 40%) L PL1 (% Stenosis): Normal RCA (% Stenosis): Proximal (Mild less than 30%) and Mid (Diffuse mild up to 40%) R PDA (% Stenosis): Proximal (80%) Ramus (% Stenosis): Ostial (Long 60 to 70%) Diagnostic Physicians Name: Micky Rodríguez MD, PhD Closure Device Percutaneous Entry Location: Radial Closure Device: Radial Band Recommendations: Medical Therapy and/or Counseling and PCI without planned CABG PCI Indication: PCI for high risk Non-RAMSEY Lesion Segment Name: LAD Culprit Artery: Yes Stenosis Prior to Rx (%): 80 to 90% (distal) 99% (mid) Chronic Total Occlusion: No Pre-Procedure DEBBIE Flow: 2 Previously Treated Lesion: No Lesion Complexity: Non-High/Non-C Lesion Length (mm): 15 mm (distal), 13 mm (mid) Thrombus Present: Yes Bifurcation Lesion: Yes Guidewire Across Lesion: Yes Intraprocedure Events Significant Disection: No Perforation: No Cardiac Cath Procedure Full Procedure Date February 05, 2023 Pre-Procedure Diagnosis Pre-Procedure Diagnosis: Non STEMI AUC Score AUC Score: 07 Post-Procedure Diagnosis Post-Procedure Diagnosis: Severe CAD and Successful PCI Procedure(s) Performed Procedure(s) Performed: Coronary Angiography and Drug Eluting Stent Body Hanger Micky Rodríguez MD, PhD Estimated Blood Loss Estimated Blood Loss: 10 ml Medication(s) Medication(s): Fentanyl, Heparin, Lidocaine 1% and Versed Summary of Findings Brief description: Patient was brought to the cardiac catheterization suite where he was shaved and prepped in a sterile fashion. Sedated using Versed and fentanyl. Soft tissues of the right wrist were anesthetized using 2 mL of 1% Xylocaine. The right radial artery was accessed using modified Seldinger technique and a 6 Nepalese radial artery sheath was placed. Patient was provided anticoagulation with IV heparin and antispasmodics including nicardipine and nitroglycerin. All catheters were advanced and exchanged over a 0.035 J-tip wire. Left coronary angiography in orthogonal views with a 5 [place] 4 diagnostic catheter. Right coronary angiography in orthogonal views with a 5 [place] 4 diagnostic catheter Diagnostic catheters were removed. We prepared for PCI. ACT was checked and additional heparin was provided throughout the procedure as needed to maintain therapeutic anticoagulation. A 6 Nepalese EBU 3.0 guide catheter was used to engage the left main coronary. A BMW reversal guidewire was advanced and positioned distally in the LAD. The LAD lesions were predilated using a 2.5 x 12 mm PTCA balloon. The more distal lesion was stented using a 2.5 x 18 mm drug-eluting stent. The more proximal lesion was stented using a 2.75 x 18 mm drug-eluting stent. The proximal portion of the more distal stent was postdilated using a 2 seven 5 x 8 mm noncompliant balloon. The proximal portion of the more proximal stent was postdilated using a 3.25 x 8 mm noncompliant balloon. Guidewire was removed. Final angiographic evaluation was performed in orthogonal views. Guide catheter was removed. Radial artery sheath was removed. Hemostasis obtained using the TR band. Patient remained hemodynamically stable and asymptomatic. He received 180 mg p.o. Brilinta and 81 mg p.o. aspirin. He was returned to the recovery area. This ended the case. Coronary angiography findings: LMT: Large caliber trifurcating into LAD, circumflex, and ramus. Mild disease. LAD: Large caliber and reaches the apex. Proximal segment with diffuse mild disease. Gives a large branching septal trunk which has ostial to proximal 70 to 80% stenosis. In the midsegment involving the ostium of the small first diagonal there is a 99% occlusion with small amount of thrombus. Beyond the lesion there is DEBBIE II flow. The distal LAD has a long eccentric lesion of 80 to 90%. LCx: Large caliber and nondominant. Travels in the AV groove giving a large caliber branching OM1. It then becomes smaller in caliber and terminates in a medium caliber posterolateral branch. The ostial to proximal AV groove circumflex has 40 to 50% narrowing. Then just before the ostium of the OM1 it has a 50 to 60% tubular stenosis. Ramus: This is medium caliber. Proximal vessel has a long eccentric 70% stenosis in the vessel then branches distally. This vessel appears too small for stenting. RCA: This is a very large caliber and dominant vessel. Bifurcates distally into a medium to large caliber branching posterolateral and a large caliber long PDA which wraps the apex. Proximal RCA has mild less than 30% stenosis. The mid segment has diffuse mild disease of up to 40% stenosis. The proximal to mid PDA has a 80% stenosis. PCI of LAD: 0% residual stenosis post PCI in the mid segment as well as the distal segment. DEBBIE-3 flow post PCI No evidence of dissection or perforation post PCI Summary: 1. Severe multivessel coronary artery disease including the LAD (culprit), PDA, and ramus (too small for PCI). 2. Successful PCI with implantation of 2 drug-eluting stents in the mid LAD and early distal LAD. 3. Recommend dual antiplatelet therapy with aspirin 81 mg daily and Brilinta 90 mg p.o. twice daily for at least 1 year but preferably up to 2 years. 4. Guideline directed medical therapy for secondary prevention of coronary disease to include; low-dose aspirin, high intensity statin therapy, beta-b locker, plus or minus REYNALDO inhibitor/ARB as tolerated. 5. Patient has significant residual disease in the PDA. If he continues with anginal symptoms then I would proceed with staged PCI of the PDA. Hemodynamics Rest Ao:: 138/85 mmHg, mean 107 mmHg Final Ao: 166/85 mmHg, mean 112 mmHg LV: Not performed Recommendations Recommendations: Medical Therapy and/or Counseling and PCI without planned CABG Radiation Exposure (mGy) 1418 mGy, fluoroscopy time 12.8 minutes Contrast (mls) 185 mL Anesthesia 2 mg IV Versed, 50 mcg IV fentanyl (start 10:27, and 11:14) Procedural Complication(s) None None Disposition Recovery Room\PACU I attest to the content of the Intraoperative Record and any orders documented therein. Any exceptions are noted below. [facility] Card Cath Procedure Codes Cardiac Catheterization Procedure 1: Cardiovascular Cath Procedures: 52403 Coronaries Moderate Sedation Procedure 1: Sedation/Anesthesia: 22520 Mod Sedation by the same physician;Init15 Min Child Age 5 & Up Procedure 2: Sedation/Anesthesia: 38414 Mod Sedation by the same physician; Ea [id number] Minutes Stenting Procedure 1: Cardiovascular Stent Procedures: 41347 Perc transcatheter placement of intracoronary stent(s), with ang PG Care Time/CCT Total # of Minutes Spent Total Time Spent with Patient: Total time spent is greater than 50% in coordination of care (as documented) at patient's floor/unit and/or counseling patient:
[2023-02-05] MEDS: METOPROLOL TARTRATE 25 MG TAB PO SCH ×2 (11:56→20:35)
[2023-02-05] MEDS: ATORVASTATIN 40 MG TAB PO SCH (11:56)
[2023-02-05] MEDS: SODIUM CHLORIDE 0.9% 1000ML 1,000 ML IV SCH (11:56)
[2023-02-05] MEDS: lisinopril 10 MG TAB PO SCH (11:56)
--- NOTE | 2023-02-05 12:36 | Electrocardiogram Report ---
Test Reason : Blood Pressure : / mmHG Vent. Rate : 071 BPM Atrial Rate : 071 BPM P-R Int : 176 ms QRS Dur : 088 ms QT Int : 398 ms P-R-T Axes : 040 016 044 degrees QTc Int : 432 ms Normal sinus rhythm Septal and lateral ST elevation Abnormal ECG When compared with ECG of 03-FEB-2023 09:33, (unconfirmed) ST elevation now present in Lateral leads Confirmed by Betito Bernard ([id number]) on 02/05/2023 12:35:33 PM Referred By: REFERRED SELF Confirmed By:Betito Bernard
--- NOTE | 2023-02-05 12:56 | Electrocardiogram Report ---
Test Reason : Blood Pressure : / mmHG Vent. Rate : 072 BPM Atrial Rate : 072 BPM P-R Int : 162 ms QRS Dur : 088 ms QT Int : 392 ms P-R-T Axes : 044 012 098 degrees QTc Int : 429 ms Normal sinus rhythm Abnormal QRS-T angle, consider primary T wave abnormality Abnormal ECG When compared with ECG of 04-FEB-2023 01:50, (unconfirmed) T wave inversion now evident in Lateral leads Confirmed by Betito Bernard ([id number]) on 02/05/2023 12:56:06 PM Referred By: REFERRED SELF Confirmed By:Betito Bernard
--- NOTE | 2023-02-05 12:59 | Electrocardiogram Report ---
Test Reason : Blood Pressure : / mmHG Vent. Rate : 076 BPM Atrial Rate : 076 BPM P-R Int : 146 ms QRS Dur : 080 ms QT Int : 362 ms P-R-T Axes : 062 048 078 degrees QTc Int : 407 ms Poor data quality, interpretation may be adversely affected Normal sinus rhythm with sinus arrhythmia Normal ECG When compared with ECG of 04-FEB-2023 05:53, (unconfirmed) No significant change was found Confirmed by Betito Bernard ([id number]) on 02/05/2023 12:59:07 PM Referred By: REFERRED SELF Confirmed By:Betito Bernard
[2023-02-05] MEDS: TAMSULOSIN HCL 0.4 MG CAP PO SCH (20:35)
[2023-02-05] MEDS: TICAGRELOR 90 MG TAB PO SCH (20:36)
[2023-02-06 07:10] LABS: Albumin Globulin Ratio 1.8 (0.9-2); Albumin Level 4.2 gm/dl (3.4-5.0); BUN Creatinine Ratio 12.2 (10-20); Bilirubin,Total 1.2 mg/dl (0.2-1.0); Calcium 9.4 mg/dl (8.6-10.3); Creatinine Clr Calc Pharmacy 95.2 ml/min; Est GFR (African American) 109.1 ml/min; Est GFR (Non-African American) 94.1 ml/min; Globulin 2.4 gm/dl (2.5-4.0); Potassium 3.7 mmol/L (3.5-5.1); Total Protein 6.6 gm/dl (6.0-8.3)
[2023-02-06] MEDS ORDERED: ASPIRIN 81 MG ECTAB PO SCH (09:00)
[2023-02-06] MEDS: METOPROLOL TARTRATE 25 MG TAB PO SCH (09:03)
[2023-02-06] MEDS: ASPIRIN 81 MG ECTAB PO SCH (09:03)
[2023-02-06] MEDS: TICAGRELOR 90 MG TAB PO SCH (09:03)
[2023-02-06] MEDS: ATORVASTATIN 40 MG TAB PO SCH (09:04)
[2023-02-06] MEDS: lisinopril 10 MG TAB PO SCH (09:04)
--- NOTE | 2023-02-06 09:51 | Cardiology Progress Note ---
Date of Service February 06, 2023 Assessment & Plan (1) Non-ST elevation [place] (NSTEMI): (2) HTN (hypertension): (3) Elevated liver enzymes: (4) Fatty liver: (5) Right distal ureteral calculus: Plan Diagnostic coronary angiography performed 02/05/2023 revealed a 99% thrombotic occlusion of the mid LAD, and a 80 to 90% long eccentric stenosis of the distal LAD. Nonobstructive disease noted in the circumflex and obtuse marginals. An 80% proximal stenosis noted in the PDA branch of the right coronary artery. The LAD lesions correlated as being the culprit lesions especially given the anterior, anteroseptal, apical wall motion abnormality noted on echocardiogram (LVEF 55 to 60%). Patient therefore underwent PCI with 2 drug-eluting stents placed in the mid LAD and early distal LAD. As noted, residual disease present in the right PDA branch of the RCA. Continue medication therapy including aspirin 81 mg daily (lifelong therapy), Brilinta 90 mg twice daily (1 year) lisinopril 10 mg daily, Flomax 0.4 mg daily, metoprolol succinate 50 mg daily, atorvastatin 40 mg daily. A referral has been placed for cardiac rehabilitation at [facility]. With regards to his right renal calculus, patient notes clear urine, mild residual groin pain. Outpatient urology follow up likely indicated for h/o stone and enlarged prostate. Patient stable for discharge on medication as noted above. Plan for trial of medical therapy. If has residual angina at time of follow up , will consider staged PCI to PDA lesion. Will need to be off of work for another 2 weeks. Already has an FMLA application in process. Post intervention care placed in discharge document. Admission and Anticipated Discharge Date Admission Date: February 04, 2023 Subjective Patient seen in cardiology follow-up. Tolerated cardiac catheterization and PCI, 2 drug-eluting stents to the LAD performed yesterday 02/05/2023. Denies any residual symptoms of angina. Telemetry reveals stable sinus rhythm without arrhythmia. His vitals signs include a heart rate of 122 bpm this am, but per review of his telemetry , this appears to be an error, as rates have been in the 70 to 80s this am, SB in 50 during sleep. Has some mild residual groin pain, but overall flank pain is improved. Review of Systems Review of Systems: All systems reviewed & are unremarkable except as noted in HPI & below Physical Exam Physical Exam: Temp Pulse Resp BP Pulse Ox O2 Del Method 36.6 C 122 H 18 113/69 95 Room Air 02/06/23 07:36 02/06/23 07:57 02/06/23 07:36 02/06/23 07:36 02/06/23 07:36 02/06/23 07:36 Constitutional: WD/WN, vitals as above Eyes: PERRL, conjunctivae normal, anicteric sclerae Respiratory: normal respiratory effort, lungs clear to auscultation Cardiovascular: RRR, no murmur, no edema Gastrointestinal (Abdomen): normal bowel sounds, soft, nontender, no hepatosplenomegaly Neurologic: PERRL, EOMI, accommodation nl, no face palsy, no dysarthria Results & Data Vital Signs (Past 12 Hours) Vital Signs Temp Pulse Pulse Resp BP Pulse Ox O2 Del Method 02/06/23 07:57 122 H 02/06/23 07:36 36.6 C 87 18 113/69 95 Room Air 02/06/23 03:15 36.4 C L 76 20 116/73 98 Room Air 02/05/23 21:57 75 02/05/23 23:17 36.8 C 65 20 146/78 H 97 Room Air Diagnostic Findings EKG performed today 02/06/2023 at 5:28 AM and interpret independently: Sinus rhythm at 76 bpm. Age-indeterminate septal infarct pattern. T wave inversions noted in the precordial leads V2 to V5, the high lateral leads I and aVL consistent with evolution of LAD territory infarct this admission.
[2023-02-06 10:34] LABS: Hematocrit (blood only) 44.3 % (42.0-52.0); Mean Corpuscular Hemoglobin 30.3 pg (25.0-34.0); Mean Corpuscular Hgb Conc 33.9 g/dL (32.0-36.0); Mean Corpuscular Volume 89.5 fL (80.0-100.0); Mean Platelet Volume 10.8 fL (9.4-12.4); Platelet Count 245 K/uL (130-400); RDW Standard Deviation 39.2 fL (36.4-46.3); Red Blood Count 4.95 M/uL (4.70-6.10); White Blood Count 9.85 K/ul (4.8-10.8)
--- NOTE | 2023-02-06 11:02 | Urology Progress Note ---
Date of Service February 06, 2023 Assessment & Plan (1) Right distal ureteral calculus: (2) BPH (benign prostatic hyperplasia): (3) Non-ST elevation [place] (NSTEMI): Plan Distal right ureteral calculus; non-STEMI Afebrile and hemodynamically stable. Labs show no leukocytosis and normal renal function. Right flank has resolved. Still with intermittent groin discomfort. Currently with minimal to no symptoms from the stone and based on CT appearance, there is a high probability that the stone has either passed or passage is imminent. No plan for urological intervention at this time. Will continue with conservative management and observation. Continue flomax. Will arrange an outpatient follow-up with our service. Urology will sign-off for now. Please contact us with any further questions, concerns, or changes in patient's status Admission and Anticipated Discharge Date Admission Date: February 04, 2023 Subjective Patient examined at bedside this AM. Awake, resting in bed on arrival. No acute distress. Right flank has resolved. Notes intermittent groin pain. Denies noticeable stone passage. Voiding without issue. No fevers. Underwent cardiac catheterization and PCI, 2 drug-eluting stents to the LAD performed yesterday. On ilinta. Review of Systems Constitutional: as per Subjective / HPI Gastrointestinal: as per Subjective / HPI Genitourinary: + as per Subjective / HPI Physical Exam Constitutional: no acute distress Respiratory: no respiratory distress and no labored breathing Musculoskeletal: Head/Neck/Chest: normocephalic Neurologic: moves all extremities and awake Psychiatric: A+Ox3, euthymic affect Results & Data Vital Signs (Past 12 Hours) Vital Signs Temp Pulse Pulse Resp BP Pulse Ox O2 Del Method 02/06/23 07:57 112 H 02/06/23 07:36 36.6 C 87 18 113/69 95 Room Air 02/06/23 03:15 36.4 C L 76 20 116/73 98 Room Air 02/05/23 23:17 36.8 C 65 20 146/78 H 97 Room Air PG Care Time/CCT Total # of Minutes Spent Total Time Spent with Patient: Total time spent is greater than 50% in coordination of care (as documented) at patient's floor/unit and/or counseling patient: Coding Level of Care Code 91359 SUB INP/OBS CARE 2/35MIN Diagnoses Right distal ureteral calculus N20.1 BPH (benign prostatic hyperplasia) N40.0 Non-ST elevation [place] (NSTEMI) I21.4
--- NOTE | 2023-02-06 11:42 | Discharge Summary ---
Date of Service February 06, 2023 Admission HPI Per Admitting Provider 62 year old male with PMH HTN, BPH, fatty liver, and other problems listed below who presents to the ED for evaluation of RLQ abdominal pain. History obtained from patient and records he presented from recent discharge from OSH. Patient reports he was admitted to [facility] on 01/14/23 for chest pain and high blood pressure. Reports he was diagnosed with a NSTEMI and had a negative stress test, did not undergo cardiac cath. Patient reports that since returning home, he has been trying to walk 1 mile per day. He states that at the end of his walk, he will develop a left sided chest pain that radiates into his left shoulder and arm. Pain is resolved with rest. Patient had similar symptoms this morning after going downstairs to put a load of laundry in the washer. This however was not brought the patient to the ED today. Patient reports that last evening he developed a right lower quadrant abdominal pain with abdominal fullness. Patient reports he also had associated nausea and vomiting. Patient reports his pain persisted this morning so he presented to the ED for further evaluation. Patient denies fevers and chills. He reports urinary hesitancy and frequency however states he has not been taking his Flomax for the past 2 weeks. Denies hematuria. In the ED, CT ABD/pelvis shows 4 mm calculus either protruding from the right vesicoureteral junction or already passed into the bladder lumen. Initial HS troponin 353 --> 462. EKG without acute ST changes. Patient is hemodynamically stable. He was given IV ketorolac, IV Zofran, IVF. Admission Exam Per Admitting Provider Constitutional: WD/WN, vitals as above Eyes: PERRL, conjunctivae normal, anicteric sclerae ENMT: external ear and nose normal, oropharynx normal Respiratory: normal respiratory effort, lungs clear to auscultation Cardiovascular: Rate/Rhythm: regular rate and regular rhythm Vessels: normal peripheral pulses Extremities: no edema Gastrointestinal (Abdomen): normal bowel sounds, soft, nontender, no hepatosplenomegaly Musculoskeletal: no cyanosis or clubbing, extremities motor strength 5/5 Skin: no rashes, warm and dry Neurologic: PERRL, EOMI, accommodation nl, no face palsy, no dysarthria Psychiatric: A+Ox3, euthymic affect Genitourinary: no CVA tenderness Principal Diagnosis NSTEMI s/p JAEL x2, Residual PDA disease, Right ureteral calculus, HTN Discharge Exam General: Sitting comfortably in bed, not in distress, on room air HEENT: EOMI, DARWIN, MMM Chest: Clear breath sounds bilaterally, no wheezes or crackles CVS: Regular rate and rhythm, normal heart sounds, no murmur Abdomen: Soft, non tender, not distended, normal bowel sounds Neuro: Awake, alert, oriented, conversing well, non focal Extremities: No cyanosis, clubbing or edema Ambulating independently around the hernandez without issues Discharge Data Allergies Allergy/AdvReac Type Severity Reaction Status Date / Time No Known Allergies Allergy Unverified 02/03/23 07:45 Consultations 02/03/23 13:02 ED Decision to Admit Stat 02/03/23 15:34 HIM [Consult Health Information Management] Stat 02/03/23 15:55 Consult Cardiology Routine Consult Urology Routine 02/05/23 16:15 Consult Cardiac Rehabilitation Routine Procedures Performed Operation Date: 02/05/23 09:30 Actual Procedures p Cath, Coronaries ONLY (no LV) - Micky Rodríguez MD, PhD s Cineradiography w/Routine Exam - Micky Rodríguez MD, PhD s Drug Eluting Stent SGl Vessel - Micky Rodríguez MD, PhD Ordered Studies 02/03/23 07:46 CT abd pelvis IV con only Stat 02/03/23 09:27 CT angio chest PE protocol Stat 02/05/23 09:44 CL Cath Imgs for PACS use only Routine CL Cath Imgs for PACS use only Routine Laboratory Results WBC 9.85 K/ul (4.8-10.8) 02/06/23 06:02 RBC 4.95 M/uL (4.70-6.10) 02/06/23 06:02 Hgb 15.0 g/dl (14.0-18.0) 02/06/23 06:02 Hct 44.3 % (42.0-52.0) 02/06/23 06:02 MCV 89.5 fL (80.0-100.0) 02/06/23 06:02 MCH 30.3 pg (25.0-34.0) 02/06/23 06:02 MCHC 33.9 g/dL (32.0-36.0) 02/06/23 06:02 RDW Std Deviation 39.2 fL (36.4-46.3) 02/06/23 06:02 RDW Coeff of Selena 12.0 % (11.5-14.5) 02/06/23 06:02 Plt Count 245 K/uL (130-400) 02/06/23 06:02 MPV 10.8 fL (9.4-12.4) 02/06/23 06:02 Immature Gran % (Auto) 0.3 % 02/03/23 07:47 Neut % (Auto) 72.0 % 02/03/23 07:47 Lymph % (Auto) 20.6 % 02/03/23 07:47 Rogers % (Auto) 6.7 % 02/03/23 07:47 Eos % (Auto) 0.1 % 02/03/23 07:47 Baso % (Auto) 0.3 % 02/03/23 07:47 Neut # (Auto) 6.24 K/uL (1.40-6.50) 02/03/23 07:47 Lymph # (Auto) 1.79 K/uL (1.2-3.4) 02/03/23 07:47 Rogers # (Auto) 0.58 K/uL (0.11-0.59) 02/03/23 07:47 Eos # (Auto) 0.01 K/uL (0-0.50) 02/03/23 07:47 Baso # (Auto) 0.03 K/uL (0-0.2) 02/03/23 07:47 Immature Gran # (Auto) 0.03 K/uL (0.01-0.20) 02/03/23 07:47 PT 11.5 Seconds (9.0-12.0) 02/03/23 07:47 INR 1.1 (0.9-1.1) 02/03/23 07:47 APTT 86.3 Seconds (21.0-31.0) H* 02/05/23 01:57 PTT Ratio 3.1 02/05/23 01:57 Activ Coag Time Kaolin 209 SECONDS (94-140) H 02/05/23 11:00 Sodium 142 mmol/L (136-145) 02/06/23 06:02 Potassium 3.7 mmol/L (3.5-5.1) 02/06/23 06:02 Chloride 106 mmol/L (98-107) 02/06/23 06:02 Carbon Dioxide 31 mmol/L (21-32) 02/06/23 06:02 Anion Gap 5 (3-11) 02/06/23 06:02 BUN 10 mg/dl (6-23) 02/06/23 06:02 Creatinine 0.82 mg/dl (0.6-1.4) 02/06/23 06:02 Est Cr Clr Drug Dosing 95.2 ml/min 02/06/23 06:02 Est GFR ( Amer) 109.1 ml/min 02/06/23 06:02 Est GFR (Non-Af Amer) 94.1 ml/min 02/06/23 06:02 BUN/Creatinine Ratio 12.2 (10-20) 02/06/23 06:02 Glucose 134 mg/dl (70-99(Fasting)) H 02/06/23 06:02 Estimat Average Glucose 134 mg/dl 02/04/23 03:09 Hemoglobin A1c 6.3 % (4.5-5.6) H 02/04/23 03:09 Calcium 9.4 mg/dl (8.6-10.3) 02/06/23 06:02 Total Bilirubin 1.2 mg/dl (0.2-1.0) H 02/06/23 06:02 AST 49 U/L (13-39) H 02/06/23 06:02 ALT 70 U/L (7-52) H 02/06/23 06:02 Alkaline Phosphatase 103 U/L (34-104) 02/06/23 06:02 Troponin I High Sens 480.4 pg/ml (0-20) H* 02/05/23 01:57 Total Protein 6.6 gm/dl (6.0-8.3) 02/06/23 06:02 Albumin 4.2 gm/dl (3.4-5.0) 02/06/23 06:02 Globulin 2.4 gm/dl (2.5-4.0) L 02/06/23 06:02 Albumin/Globulin Ratio 1.8 (0.9-2) 02/06/23 06:02 Triglycerides 72 mg/dl (0-150) 02/04/23 03:09 Cholesterol 126 mg/dl (0-200) 02/04/23 03:09 LDL Cholesterol, Calc 80 mg/dl 02/04/23 03:09 VLDL Cholesterol, Calc 14 mg/dl (0-30) 02/04/23 03:09 HDL Cholesterol 32 mg/dl 02/04/23 03:09 Cholesterol/HDL Ratio 3.9 (0-5) 02/04/23 03:09 Lipase 12 U/L (11-82) 02/03/23 07:47 Urine Color Yellow 02/03/23 08:57 Urine Appearance Cloudy (Clear) A 02/03/23 08:57 Urine pH 5.5 (4.5-7.5) 02/03/23 08:57 Ur Specific [place] 1.022 (1.000-1.030) 02/03/23 08:57 Urine Protein Negative (Negative) 02/03/23 08:57 Urine Glucose (UA) Negative (Negative) 02/03/23 08:57 Urine Ketones 1+ (Negative) H 02/03/23 08:57 Urine Blood 3+ (Negative) H 02/03/23 08:57 Urine Nitrite Negative (Negative) 02/03/23 08:57 Urine Bilirubin Negative (Negative) 02/03/23 08:57 Urine Urobilinogen Negative (Negative) 02/03/23 08:57 Ur Leukocyte Esterase Trace (Negative) H 02/03/23 08:57 Urine WBC (Auto) 1-5 /hpf (0-5) 02/03/23 08:57 Urine RBC (Auto) >30 /hpf (0-4) H 02/03/23 08:57 U Hyaline Cast (Auto) 1-5 /lpf (0-5) 02/03/23 08:57 U Epithel Cells (Auto) 0-5 /lpf (0-5) 02/03/23 08:57 Urine Bacteria (Auto) Negative (Negative) 02/03/23 08:57 SARS-CoV-2, RNA, NAAT NEGATIVE (NEGATIVE) 02/03/23 13:16 Impressions Abdomen/Pelvis CT 02/03/23 07:46 CT SCAN OF THE ABDOMEN AND PELVIS WITH IV CONTRAST CLINICAL HISTORY: Right lower quadrant/flank pain. COMPARISON STUDY: No priors. TECHNIQUE: Following the IV administration of 94 cc of Optiray 320, CT scan of the abdomen and pelvis is performed from the lung bases to the proximal femora. Images are reviewed in the axial, sagittal, and coronal planes. IV contrast was administered without complication. A dose lowering technique was utilized adhering to the principles of ALARA. CT DOSE: 612.01 mGy.cm FINDINGS: Lung bases: The heart is normal in size and without pericardial effusion. The lung bases are clear noting dependent atelectasis. A small hiatal hernia is noted. Postsurgical change is suggested at the hiatus. Liver: The contrast-enhanced liver is enlarged, measuring 19.1 cm in length. The liver demonstrates diffusely diminished attenuation indicating steatosis. Fatty sparing is seen adjacent to the gallbladder fossa. There is no intrahepatic biliary ductal dilatation. The hepatic veins and portal veins are patent. Gallbladder: Unremarkable. Spleen: Normal in size and attenuation. Pancreas: Unremarkable. Adrenal glands: Unremarkable. Kidneys: The contrast enhanced kidneys are normal in size. There is a 4 mm calculus protruding from the right vesicoureteral junction are located within t he bladder lumen. This is seen on image #392. There is mild right hydroureteronephrosis. No additional calculi are identified in either kidney on this contrast-enhanced examination. There is no left ureteral stone or left- sided hydronephrosis. There is slightly diminished enhancement of the left kidney as compared to the right. A 14 mm cyst is noted on the left. Abdominal vasculature: The abdominal aorta is normal in course and caliber noting mild to moderate atherosclerotic calcification. Bowel: There is moderate diverticulosis of left colon without CT evidence of acute diverticulitis. No bowel obstruction is seen. The appendix is well- visualized and normal. Peritoneum: There is no intraperitoneal free air or abdominal ascites. There is a small fat-containing umbilical hernia. Lymphadenopathy: None. Pelvic viscera: The prostate gland is enlarged and heterogeneous. The bladder is distended, the wall is thickened/trabeculated indicating chronic outlet obstruction. Tiny bladder diverticula are noted. There are small bilateral fat- containing inguinal hernias. Skeletal structures: The skeletal structures appear osteopenic. There is mild lumbosacral spondylosis. No lytic or blastic lesions are seen. IMPRESSION: 1. There is a 4 mm calculus either protruding from the right vesicoureteral junction or already passed into the bladder lumen. There is mild associated rig ht hydroureteronephrosis. 2. No additional calculi are identified in either kidney on this contrast- enhanced examination. 3. Hepatomegaly and hepatic steatosis. 4. Diverticulosis of the left colon without CT evidence of acute diverticulitis. 5. Prostatomegaly with evidence of chronic bladder outlet obstruction. 6. Additional findings as above. ACT 112: Negative or not required by law. Electronically signed by: Rich Valenzuela M.D. 02/03/2023 9:40 AM Chest X-Ray 02/03/23 08:40 SINGLE VIEW CHEST CLINICAL HISTORY: Cardiac assessment. Right-sided abdominal pain. FINDINGS: An AP, portable, upright chest radiograph is obtained. No prior studies are available for comparison at the time of dictation. The cardiomediastinal silhouette is top normal for projection. The lungs and pleural spaces are clear. No pneumothorax is seen. The bony thorax is grossly intact. IMPRESSION: No active disease in the chest. ACT 112: Negative or not required by law. Electronically signed by: Rich Valenzuela M.D. 02/03/2023 9:28 AM Chest CTA 02/03/23 09:27 CT ANGIOGRAM OF THE CHEST CLINICAL HISTORY: Right-sided abdominal pain. COMPARISON STUDY: Chest x-ray dated 02/03/2023. TECHNIQUE: Following the IV administration of 120 cc of Optiray 320, CT angiogram of the chest was performed from the upper abdomen to the thoracic inlet utilizing the pulmonary embolus protocol. Images are reviewed in the axial, sagittal, and coronal planes. 3-D MIPS images are created and assessed. IV contrast was administered without complication. A dose lowering technique was utilized adhering to the principles of ALARA. CT DOSE: 480.47 mGy.cm FINDINGS: Thyroid: Imaged portions of the thyroid gland are normal in size and attenuation. Thoracic aorta: There is mild atherosclerotic calcification of the thoracic aorta, which is normal in caliber and demonstrates standard 3-vessel arch anatomy. No dissection is seen. Pulmonary vasculature: The pulmonary trunk is normal in caliber. There are no filling defects identified in main, lobar, or segmental pulmonary branches to suggest pulmonary embolus. Heart: The heart is top normal in size and without pericardial effusion. There are scattered coronary artery calcifications. Lungs and pleural spaces: No airspace consolidation or pleural effusion is identified. There is a 4 mm low suspicion focus of pleural-based nodularity in the right middle lobe along the minor fissure seen on image #166. The trachea and central airways are clear. Mediastinum: There is no mediastinal lymphadenopathy. Naomi: Clear. Axillae: There is no axillary lymphadenopathy. Upper abdomen: Excreted IV contrast is seen within the upper pole renal collecting systems. The liver is steatotic. Skeletal structures: No lytic or blastic bony lesions are seen. IMPRESSION: 1. There is no evidence of pulmonary embolus in the main, lobar, or segmental pulmonary arteries. 2. The lungs are clear. ACT 112: Negative or not required by law. Electronically signed by: Rich Valenzuela M.D. 02/03/2023 11:59 AM Hospital Course (1) Non-ST elevation IL (NSTEMI): (2) Right distal ureteral calculus: (3) HTN (hypertension): (4) BPH (benign prostatic hyperplasia): Plan 62-year-old male with recent history of NSTEMI in setting of hypertensive urgency with negative stress test, BPH who presented to ED with abdominal pain and admitted with right ureteral stone and NSTEMI. CT abdomen/pelvis 1. There is a 4 mm calculus either protruding from the right vesicoureteral junction or already passed into the bladder lumen. There is mild associated right hydroureteronephrosis. 2. No additional calculi are identified in either kidney on this contrast- enhanced examination. 3. Hepatomegaly and hepatic steatosis. 4. Diverticulosis of the left colon without CT evidence of acute diverticulitis. 5. Prostatomegaly with evidence of chronic bladder outlet obstruction. CTA chest- No evidence of PE, lungs clear Troponin trend- 353->462->329->517->517->380->463->480 Echocardiogram-EF 55 to 60% with moderate size apical and septal wall motion abnormality with hypokinesis of the segments, grade 1 diastolic dysfunction, no significant valvular pathology. Multivessel CAD with residual PDA disease NSTEMI - s/p cardiac cath yesterday with JAEL x2 in mid LAD and early distal LAD - Still with residual PDA disease. Currently chest pain free. Seen by cardio and cleared for discharge - Continue DAPT for at least 1 year, toprol, statin - F/u with cardiac rehab and cardiology - If recurrent anginal symptoms, plan for staged PCI of PDA per cardio - Patient to be off of work for 2 weeks per cardio and they will provide the excuse per patient. Coronary angiography findings: LMT: Large caliber trifurcating into LAD, circumflex, and ramus. Mild disease. LAD: Large caliber and reaches the apex. Proximal segment with diffuse mild disease. Gives a large branching septal trunk which has ostial to proximal 70 to 80% stenosis. In the midsegment involving the ostium of the small first diagonal there is a 99% occlusion with small amount of thrombus. Beyond the lesion there is DEBBIE II flow. The distal LAD has a long eccentric lesion of 80 to 90%. LCx: Large caliber and nondominant. Travels in the AV groove giving a large caliber branching OM1. It then becomes smaller in caliber and terminates in a medium caliber posterolateral branch. The ostial to proximal AV groove circumflex has 40 to 50% narrowing. Then just before the ostium of the OM1 it has a 50 to 60% tubular stenosis. Ramus: This is medium caliber. Proximal vessel has a long eccentric 70% stenosis in the vessel then branches distally. This vessel appears too small for stenting. RCA: This is a very large caliber and dominant vessel. Bifurcates distally into a medium to large caliber branching posterolateral and a large caliber long PDA which wraps the apex. Proximal RCA has mild less than 30% stenosis. The mid segment has diffuse mild disease of up to 40% stenosis. The proximal to mid PDA has a 80% stenosis. PCI of LAD: 0% residual stenosis post PCI in the mid segment as well as the distal segment. DEBBIE-3 flow post PCI No evidence of dissection or perforation post PCI Summary of cardiac cath: 1. Severe multivessel coronary artery disease including the LAD (culprit), PDA, and ramus (too small for PCI). 2. Successful PCI with implantation of 2 drug-eluting stents in the mid LAD and early distal LAD. 3. Recommend dual antiplatelet therapy with aspirin 81 mg daily and Brilinta 90 mg p.o. twice daily for at least 1 year but preferably up to 2 years. 4. Guideline directed medical therapy for secondary prevention of coronary disease to include; low-dose aspirin, high intensity statin therapy, beta- kevin, plus or minus REYNALDO inhibitor/ARB as tolerated. 5. Patient has significant residual disease in the PDA. If he continues with anginal symptoms then I would proceed with staged PCI of the PDA. Right ureteral stone-4 mm stone noted in CT as above, likely passed. No further pain noted. Urine now clear. Continue Flomax. F/u with urology at discharge Essential hypertension-BP stable, on toprol, lisinopril BPH-continue Flomax Elevated ALT-continue to trend down. Comfortable and stable for discharge home. Total Time Total Time Spent Total Time Spent (In Minutes): 35 Discharge Plan Discharge Items Patient Disposition: Home - Self-Care Reason For Visit: KIDNEY STONES ELEVATED TROP Discharge Diagnosis: NSTEMI s/p DESx2, Residual PDA disease, Right ureteral stone, HTN Activity: Per Instructions section Non-emergency contact: Primary Care Provider, Toll Line Mechanic and Urologist Call non-emergency contact if: you have any medication questions, your symptoms worsen, your pain is concerning for you and you have a fever Follow-up/Referrals: Maricarmen Herrera CRNP [Nurse Practitioner] - (Date & Time 02/16/2023 11:30 AM Provider BETTY Regan Department Cardiology, [facility] ) Wili Bell MD [Outside Practitioners] - (Date & Time 02/12/2023 1:00 PM Provider Wili Bell MD Department [facility] ) Diet: Heart Healthy Add Attending Provider Instructions: Continue aspirin indefinitely Continue brilinta twice daily for 1 year Continue flomax daily Continue toprol and lipitor daily Follow up with cardiac rehab, cardiology, urology and PCP If recurrent chest pain, call your doctor or come back to the emergency immediately ACTIVITY RECOMMENDATIONS: Excess manipulation of the wrist should be avoided for the next 24-48 hours. * No lifting over 2 pounds (approximately a 1/2 gallon of milk) with the utilized arm for 24 hours. * No strenuous activity such as bowling or tennis for 3 days. * Keep the site of the procedure covered with a bandage for 24 hours. *You may shower the day after the procedure. Do not take a tub bath or submerge the puncture site in water for the next 3 days. *Do not operate any motorized equipment for 3 days. SPECIAL CARE INSTRUCTIONS: The site may be slightly bruised and sore following your procedure. Should any of the following occur, contact the Dr. who performed your procedure. 1. Redness/inflammation, swelling, chills, or fever, or colored drainage at procedure site within 3-7 days after your procedure. 2. Coldness, discoloration, ongoing numbness, severe pain, or swelling. Expect mild tingling of hand and tenderness at the puncture site for up to three days. If this persists beyond three days, or other symptoms develop, notify the Dr. who performed your procedure. BLEEDING: If the procedure site on your wrist begins to bleed, do not panic 1. Place 1 or 2 fingers firmly just slightly above the insertion site to stop the bleeding. You may be able to feel your pulse as you hold pressure. 2. Lift your finger after 5 minutes to see if the bleeding has stopped. 3. Once the bleeding has stopped, gently wipe the wrist area clean with a bandage. * If the bleeding from your wrist does not stop after 10 minutes, or if there is a large amount of bleeding or spurting, call 911 (do not drive yourself to the hospital). SKIN IRRITATION: * You may experience some redness and/or swelling in the area where radiation was administered. If any skin irritation occurs, please contact your family physician. FOLLOW UP VISIT: Keep any scheduled doctor appointments. Pending Studies at Discharge: No Stand-Alone Forms: My [facility] [employer], Smoking Cessation Medications and DC Order Prescriptions: New Brilinta 90 mg Tablet 90 mg PO BID Qty: 60 0RF atorvastatin 40 mg Tablet 40 mg PO QAM Qty: 30 0RF metoprolol succinate 50 mg Tablet Extended Release 24 Hr 50 mg PO QAM Qty: 30 0RF nitroglycerin [Nitrostat] 0.4 mg Tablet, Sublingual 0.4 mg sublingual UD PRN (Reason: chest pain) Qty: 30 0RF Continued aspirin 81 mg Tablet,Delayed Release (Dr/Ec) 81 mg PO DAILY lisinopril 10 mg tablet 10 mg PO DAILY tamsulosin [Flomax] 0.4 mg Capsule 0.4 mg PO DAILY Qty: 30 0RF Discharge Orders: Discharge Order (Routine); Ordered 02/06/23 Ordered By: Matthew Mendosa/Other Patient Handouts: Prediabetes, 5 Steps for Eating Healthier Admission Data Admit Date/Time: 02/04/23 10:16 Attending Provider: Matthew Akins Admit Provider: Matthew Akins Primary Care Provider: PCP,NO Other Providers: Micky Arriola ; Richard Romero ; Matthew Akins
--- NOTE | 2023-02-06 16:44 | Electrocardiogram Report ---
Test Reason : Blood Pressure : / mmHG Vent. Rate : 065 BPM Atrial Rate : 065 BPM P-R Int : 174 ms QRS Dur : 092 ms QT Int : 382 ms P-R-T Axes : 045 023 096 degrees QTc Int : 397 ms Normal sinus rhythm Nonspecific T wave abnormality Abnormal ECG When compared with ECG of 04-FEB-2023 10:14, (unconfirmed) No significant change was found Confirmed by Betito Bernard ([id number]) on 02/06/2023 4:43:32 PM Referred By: REFERRED SELF Confirmed By:Betito Bernard
--- NOTE | 2023-02-06 17:00 | Electrocardiogram Report ---
Test Reason : Blood Pressure : / mmHG Vent. Rate : 058 BPM Atrial Rate : 058 BPM P-R Int : 170 ms QRS Dur : 088 ms QT Int : 386 ms P-R-T Axes : 000 136 098 degrees QTc Int : 378 ms Sinus bradycardia Arm lead reversal T wave abnormality, consider anterior ischemia Abnormal ECG When compared with ECG of 05-FEB-2023 05:28, (unconfirmed) No significant change taking lead reversal into account Confirmed by Betito Bernard ([id number]) on 02/06/2023 5:00:18 PM Referred By: REFERRED SELF Confirmed By:Betito Bernard
--- NOTE | 2023-02-06 20:03 | Electrocardiogram Report ---
Test Reason : Blood Pressure : / mmHG Vent. Rate : 076 BPM Atrial Rate : 076 BPM P-R Int : 168 ms QRS Dur : 094 ms QT Int : 370 ms P-R-T Axes : 061 052 101 degrees QTc Int : 416 ms Normal sinus rhythm Septal infarct , age undetermined T wave abnormality, consider anterolateral ischemia Abnormal ECG When compared with ECG of 05-FEB-2023 11:37, (unconfirmed) Septal infarct is now Present Confirmed by Betito Bernard ([id number]) on 02/06/2023 8:02:46 PM Referred By: REFERRED SELF Confirmed By:Betito Bernard
[2023-02-07] MEDS ORDERED: METOPROLOL SUCC 50MG EXT REL TAB PO SCH (09:00)
== END 2023-02-06 12:57 | disposition home or self-care (01) | DRG 247 ==
LOC: 2S 07:23 → ED 07:23 → 2S 14:51
PROC: CLB.CCO (2023-02-05 09:30)
DX: I21.4 Non-ST elevation (NSTEMI) myocardial infarction; I16.0 Hypertensive urgency; N40.0 Benign prostatic hyperplasia without lower urinary tract symptoms; N13.2 Hydronephrosis with renal and ureteral calculous obstruction; Z79.82 Long term (current) use of aspirin; Z20.822 Contact with and (suspected) exposure to COVID-19; I10 Essential (primary) hypertension; R74.01 Elevation of levels of liver transaminase levels; Z79.899 Other long term (current) drug therapy; I25.10 Atherosclerotic heart disease of native coronary artery without angina pectoris